=== PATIENT | male | born 1930 | race Caucasian/White ===

== ENCOUNTER 2017-04-15 11:21 | Inpatient (IN) ==
--- OUTSIDE RECORDS SUMMARY | 2017-04-15 11:27 | External Medical Summary | Summary of Care ---
:1930 Author Name Faina Linn M.D. Address [address] [place] [address] Care Team Providers Name Role Phone Bryan Oliver D.O. 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 Refills: 0 Started 16-Aug-2012 ActiveLisinopril 10 MG Oral Tablet TAKE 1 TABLET DAILY. Refills: 0 Started 16-Aug-2012 ActiveAleve 220 MG Oral Tablet TAKE 1 TABLET 3 TIMES DAILY NEEDED. Refills: 0 Started 16-Aug-2012 ActiveGlucosamine Sulfate 1000 MG Oral Capsule TAKE DIRECTED. Refills: 0 Started 16-Aug-2012 ActiveLovastatin 40 MG Oral Tablet TAKE 1 TABLET DAILY DIRECTED. Refills: 0 Started 16-Aug-2012 ActiveCarvedilol 6.25 MG Oral Tablet TAKE 1 TABLET TWICE DAILY WITH MEALS. Quantity: 60 Refills: 11 Bryan Oliver D.O. Started 16-Aug-2012 ActiveAspirin 81 MG Oral Tablet TAKE 1 TABLET DAILY. Quantity: 30 Refills: 0 Bryan Oliver D.O. Started 16-Aug-2012 ActiveAlendronate Sodium 70 MG Oral Tablet TAKE DIRECTED. Refills: 0 Started Active Allergies and Adverse Reactions Name Dates Details No Known Drug Allergies Status: Active Past Medical History Name Dates Details History of myocardial infarction (412, I25.2) Status: Resolved Procedures Procedure Dates Details History of CABG Procedures not documented Immunization Name Dates Details Immunizations not documented Family History Father Name Dates Details Family history of Acute Myocardial Infarction (V17.3) Status: Active Brother Name Dates Details Family history of Acute Myocardial Infarction (V17.3) Status: Active Family history of Acute Myocardial Infarction (V17.3) Status: Active Social History Name Dates Details Smoking StatusNever smoker Vital Signs Date Test Result Details 09:26 BP Systolic 112 mm[Hg] Status: BP Diastolic 70 mm[Hg] Status: Heart Rate 62 /min Status: Weight 176.4 lb Status: Body Mass Index Calculated 28.47 kg/m2 Status: Body Surface Area Calculated 1.9 m2 Status: Results Date Description Value Details Results not documented Plan of Care Planned Observations Name Dates Details Planned Goals not documented Goal Planned Encounters Appointment; Provider: Faina Linn On 09:00 Instructions Instructions not documented Encounters Appointment; Faina Linn On Encounter Diagnosis: Problem not documented 09:30 Appointment; Faina Linn On Encounter Diagnosis: Problem not documented 10:15
--- OUTSIDE RECORDS SUMMARY | 2017-04-15 11:27 | External Medical Summary | Summary of Care ---
:1930 Author Name Faina Linn M.D. Address [address] [place] [address] Care Team Providers Name Role Phone Bryna Oliver D.O. Unavailable Unavailable Veronica Schafer Primary [...] Procedures Procedure Dates Details History of CABG History of Appendectomy Procedures not documented Immunization Name Dates Details Immunizations not documented Family History Father Name Dates Details Family history of Acute Myocardial Infarction (V17.3) Status: Active Brother Name Dates Details Family history of Acute Myocardial Infarction (V17.3) Status: Active Family history of Acute Myocardial Infarction (V17.3) Status: Active Social History Name Dates Details Smoking StatusNever smoker Vital Signs Date Test Result Details 25-Dec-2014 11:37 BP Systolic 120 mm[Hg] Status: BP Diastolic 70 mm[Hg] Status: Heart Rate 72 /min Status: Height 66 in Status: Weight 171 lb Status: Body Mass Index Calculated 27.6 kg/m2 Status: Body Surface Area Calculated 1.87 m2 Status: Results Date Description Value Details 11-Dec-2014 13:07 CARD REST-STRESS PERFUSION Comments: Exam Date: 2014 08:40Dictation Date: 12/11/2014 13:07 XN CARD REST PERFUSION (Better) Plan of Care Planned Observations Name Dates Details Planned Goals not documented Goal Planned Encounters Appointment; Provider: Faina Linn On 09:00 Appointment; Provider: Schedule Radiology On 07-Dec-2014 09:00 Instructions Instructions not documented Encounters Appointment; Faina Linn On 25-Dec-2014 Encounter Diagnosis: Problem not documented 11:30 Appointment; Faina Linn On Encounter Diagnosis: Problem not documented 09:30 Appointment; Faina Linn On Encounter Diagnosis: Problem not documented 10:15
--- OUTSIDE RECORDS SUMMARY | 2017-04-15 11:27 | External Medical Summary ---
:1930 Author Name GENERATED, SYSTEM Care Team Providers Name Role Phone MD DOSHI KATHRYN Primary Care Provider [phone] Reason For Visit Reason for Visit from 01/09/2015 7:50 AM:Pt Stated Reason for Adm : "right knee replacement" Chief Complaint OA (R) KNEE,RIGHT TOTAL KNEE ART Social History Social History from 01/12/2015 9:38 AM:Tobacco Use? : Never SmokerSocial History from 01/09/2015 7:50 AM:Tobacco Use? : Never Smoker Functional Status Functional Status from 01/12/2015 4:28 AM:# Assists : 3Functional Status from 02/2015 8:30 PM:LOC : ConfusedOriented To : PersonWeight Bearing Status : FullAssist Level : Partial# Assists : 1Functional Status from 01/11/2015 8:45 AM: LOC : AlertOriented To : Person,Place,TimeWeight Bearing Status : FullAssist Level : Partial# Assists : 1Functional Status from 01/10/2015 8:11 PM:LOC : AlertOriented To : Person,PlaceWeight Bearing Status : FullAssist Level : Partial# Assists : 2Functional Status from 01/10/2015 6:29 PM:# Assists : 1Functional Status from 01/10/2015 9:48 AM:# Assists : 1Functional Status from 01/10 8:38 AM:Oriented To : Person,EventFunctional Status from 01/10/2015 8:13 AM: Oriented To : PersonFunctional Status from 01/10/2015 7:50 AM:LOC : ConfusedOriented To : PersonWeight Bearing Status : FullAssist Level : Partial# Assists : 2Functional Status from 01/09/2015 7:20 PM:LOC : AlertOriented To : Person,Place,Time,EventWeight Bearing Status : FullAssist Level : Partial# Assists : 1Functional Status from 01/09/2015 2:30 PM:LOC : AlertOriented To : Person,Place,TimeWeight Bearing Status : FullAssist Level : Partial# Assists : 2Functional Status from 01/09/2015 12:51 PM:LOC : AlertFunctional Status from 2014 11:45 AM:LOC : AlertFunctional Status from 01/09/2015 7:50 AM:LOC : AlertOriented To : Person,Place,Time,EventWeight Bearing Status : FullAssist Level : Independent# Assists : Independent Vital Signs Hospital Vital Signs from 01/12/2015 6:25 AM:Height : 5/5 ft,inTemperature : 98.3 FPulse : 91Respirations : 20BP : 146/66Hospital Vital Signs from 01/11/2015 10:44 PM:Height : 5/5 ft,inTemperature : 98.2 FPulse : 77Respirations : 20BP : 113/52Hospital Vital Signs from 01/11/2015 3:10 PM:Height : 5/5 ft,inTemperature : 973.9 FPulse : 74Respirations : 20BP : 135/57Hospital Vital Signs from 2014 6:08 AM:Height : 5/5 ft,inTemperature : 98.3 FPulse : 77Respirations : 14BP : 148/66Hospital Vital Signs from 01/11/2015 4:29 AM:Weight : 62.5/ kgHeight : 5/5 ft,inHospital Vital Signs from 01/10/2015 10:38 PM:Height : 5/5 ft, inTemperature : 99.4 FPulse : 80Respirations : 16BP : 141/63Hospital Vital Signs from 01/10/2015 3:07 PM:Height : 5/5 ft,inTemperature : 100.0 FPulse : 70Respirations : 16BP : 153/69Hospital Vital Signs from 01/10/2015 11:30 AM: Height : 5/5 ft,inTemperature : 99.1 FPulse : 73Respirations : 14BP : 133/ 62Hospital Vital Signs from 01/10/2015 9:06 AM:Height : 5/5 ft,inHospital Vital Signs from 01/10/2015 7:24 AM:Height : 5/5 ft,inTemperature : 99.1 FPulse : 73Respirations : 14BP : 136/82Hospital Vital Signs from 01/10/2015 2:17 AM:Height : 5/5 ft,inTemperature : 98.6 FPulse : 77Respirations : 20BP : 127/57Hospital Vital Signs from 01/09/2015 10:25 PM:Height : 5/5 ft,inTemperature : 99.3 FPulse : 65Respirations : 16BP : 135/60Hospital Vital Signs from 01/09/2015 7:29 PM: Height : 5/5 ft,inTemperature : 98.7 FPulse : 67Respirations : 16BP : 138/ 67Hospital Vital Signs from 01/09/2015 4:09 PM:Height : 5/5 ft,inPulse : 60Respirations : 16BP : 137/87Hospital Vital Signs from 01/09/2015 3:00 PM:Height : 5/5 ft,inPulse : 59Respirations : 16BP : 157/71Hospital Vital Signs from 2014 2:31 PM:Height : 5/5 ft,inPulse : 53Respirations : 16BP : 139/61Hospital Vital Signs from 01/09/2015 2:00 PM:Height : 5/5 ft,inPulse : 53Respirations : 16BP : 134/57Hospital Vital Signs from 01/09/2015 1:45 PM:Height : 5/5 ft,inPulse : 55Respirations : 16BP : 146/67Hospital Vital Signs from 01/09/2015 1:30 PM: Height : 5/5 ft,inPulse : 54Respirations : 16BP : 148/65Hospital Vital Signs from 01/09/2015 1:21 PM:Height : 5/5 ft,inTemperature : 97.2 FPulse : 53Respirations : 16BP : 135/63Hospital Vital Signs from 01/09/2015 12:50 PM:Heart Rate : 51Resp Rate : 15Systolic BP (mmHg) : 126Diastolic BP (mmHg) : 56Mean BP ( mmHg) : 73O2 Saturation (%) : 97Hospital Vital Signs from 01/09/2015 12:45 PM: Temp : 97.6Heart Rate : 50Resp Rate : 15Systolic BP (mmHg) : 111Diastolic BP ( mmHg) : 58Mean BP (mmHg) : 78O2 Saturation (%) : 96Hospital Vital Signs from 01/09 12:40 PM:Heart Rate : 50Resp Rate : 17Systolic BP (mmHg) : 112Diastolic BP (mmHg) : 64Mean BP (mmHg) : 76O2 Saturation (%) : 95Hospital Vital Signs from 01/09/2015 12:35 PM:Heart Rate : 47Resp Rate : 17Systolic BP (mmHg) : 115Diastolic BP (mmHg) : 63Mean BP (mmHg) : 78O2 Saturation (%) : 95Hospital Vital Signs from 01/09/2015 12:30 PM:Heart Rate : 49Resp Rate : 18O2 Saturation (% ) : 96Hospital Vital Signs from 01/09/2015 12:25 PM:Temp : 97.6Heart Rate : 51Resp Rate : 14Systolic BP (mmHg) : 120Diastolic BP (mmHg) : 97Mean BP (mmHg) : 104O2 Saturation (%) : 100Hospital Vital Signs from 01/09/2015 12:20 PM:Heart Rate : 49Resp Rate : 12Systolic BP (mmHg) : 127Diastolic BP (mmHg) : 77Mean BP ( mmHg) : 89O2 Saturation (%) : 100Hospital Vital Signs from 01/09/2015 12:15 PM: Heart Rate : 49Resp Rate : 12Systolic BP (mmHg) : 73Diastolic BP (mmHg) : 49Mean BP (mmHg) : 62O2 Saturation (%) : 100Hospital Vital Signs from 01/09/2015 12:10 PM:Heart Rate : 48Resp Rate : 15Systolic BP (mmHg) : 87Diastolic BP (mmHg ) : 53Mean BP (mmHg) : 74O2 Saturation (%) : 100Hospital Vital Signs from 2014 12:05 PM:Temp : 97.2Heart Rate : 48Resp Rate : 14Systolic BP (mmHg) : 110Diastolic BP (mmHg) : 59Mean BP (mmHg) : 72O2 Saturation (%) : 99Hospital Vital Signs from 01/09/2015 12:00 PM:Heart Rate : 50Resp Rate : 18Systolic BP ( mmHg) : 111Diastolic BP (mmHg) : 59Mean BP (mmHg) : 85O2 Saturation (%) : 97Hospital Vital Signs from 01/09/2015 11:55 AM:Heart Rate : 50Resp Rate : 18Systolic BP (mmHg) : 107Diastolic BP (mmHg) : 51Mean BP (mmHg) : 77O2 Saturation (%) : 99Hospital Vital Signs from 01/09/2015 11:50 AM:Heart Rate : 51Resp Rate : 19O2 Saturation (%) : 98Hospital Vital Signs from 01/09/2015 11:45 AM:Temp : 98Systolic BP (mmHg) : 102Diastolic BP (mmHg) : 49Mean BP (mmHg) : 65O2 Saturation (%) : 94Hospital Vital Signs from 01/09/2015 7:50 AM:Weight : 80.286/ kgHeight : 5/5 ft,inHospital Vital Signs from 01/09/2015 7:44 AM:Weight : 75/ kgHeight : 5/4.5 ft,inTemperature : 97 FPulse : 63Respirations : 18BP : 133/ 66 Results Chemistry from 01/12/2015 4:30 [id number] MMOL/L L (136-145 MMOL/L) POTASSIUM3.7 MMOL/L (3.5-5.1 MMOL/L) OWIFGBYK23 MMOL/L (98-107 MMOL/L) YOR306.6 MMOL/L (21.0-32.0 MMOL/L) ANION GAP12.4 MMOL/L (8.0-16.0 MMOL/L) BUN21 MG/DL H (7-18 MG/DL) CREATININE1.16 MG/DL (0.70-1.30 MG/DL) BUN/CREATININE RATIO18.1 H (9.1-17.0 ) AZHTWTH063 MG/DL H (65-99 MG/DL) GFR EST NON AFR TZPRXWWJ21 ML/MIN GFRA EST AFR AMER67 ML/MIN CALCIUM8.4 MG/DL L (8.5-10.1 MG/DL)Chemistry from 01/11/2015 5:24 [id number] MMOL/L L (136-145 MMOL/L) POTASSIUM4.3 MMOL/L (3.5-5.1 MMOL/L) RUUKJAJM704 MMOL/L (98-107 MMOL/L) ENI672.4 MMOL/L (21.0-32.0 MMOL/L) ANION GAP6.6 MMOL/L L (8.0-16.0 MMOL/L) BUN14 MG/DL (7-18 MG/DL) CREATININE0.96 MG/DL (0.70-1.30 MG/DL) BUN/CREATININE RATIO14.6 (9.1-17.0 ) JYXFMLQ966 MG/DL H (65-99 MG/DL) GFR EST NON AFR VUCOVPGT88 ML/MIN GFRA EST AFR AMER84 ML/MIN CALCIUM7.9 MG/DL L (8.5-10.1 MG/DL)Chemistry from 01/10/2015 4:47 [id number] MMOL /L (136-145 MMOL/L) POTASSIUM4.1 MMOL/L (3.5-5.1 MMOL/L) GGGHIFVX626 MMOL/L (98-107 MMOL/L) TIF105.1 MMOL/L (21.0-32.0 MMOL/L) ANION GAP6.9 MMOL/L L (8.0-16.0 MMOL/L) BUN16 MG/DL (7-18 MG/DL) CREATININE1.04 MG/DL (0.70-1.30 MG/DL) BUN/CREATININE RATIO15.4 (9.1-17.0 ) GICXWFQ193 MG/DL H (65-99 MG/DL) GFR EST NON AFR ESTWBOCQ60 ML/MIN GFRA EST AFR AMER77 ML/MIN CALCIUM7.9 MG/DL L (8.5-10.1 MG/DL)Chemistry from 01/09/2015 8:30 [id number] MMOL /L (136-145 MMOL/L) POTASSIUM4.0 MMOL/L (3.5-5.1 MMOL/L) ZXJITNQX613 MMOL/L (98-107 MMOL/L) SDY589.3 MMOL/L (21.0-32.0 MMOL/L) ANION GAP7.7 MMOL/L L (8.0-16.0 MMOL/L) BUN22 MG/DL H (7-18 MG/DL) CREATININE1.05 MG/DL (0.70-1.30 MG/DL) BUN/CREATININE RATIO21.0 H (9.1-17.0 ) NWUGOVP271 MG/DL H (65-99 MG/DL) GFR EST NON AFR UPSPYHKI76 ML/MIN GFRA EST AFR AMER76 ML/MIN CALCIUM8.6 MG/DL (8.5-10.1 MG/DL)Hematology from 01/12/2015 4:30 EKUDOKNBVOBG56.5 G/DL (12.5-16.3 G/DL) KJFTFIOJVH96.1 % (36.7-47.1 %)Hematology from 01/11/2015 5:24 TJPVGSUCFXVS07.4 G/ DL (12.5-16.3 G/DL) NDPOVGJNUL83.6 % (36.7-47.1 %)Hematology from 01/10/2015 4:47 NGTUESQXLXFW45.0 G/ DL (12.5-16.3 G/DL) LSNFXAXBWA57.9 % (36.7-47.1 %)Urinalysis from 01/10/2015 2:25 AMURINE COLORYELLOW (STRAW/YELL/DK YELL ) URINE APPEARANCETURBID (CLEAR ) URINE PH5.0 (5.0-8.0 ) URINE SPECIFIC GRAVITY>1.030 (<=1.005->=1.030 ) URINE GLUCOSENEGATIVE MG/DL (NEGATIVE MG/DL) URINE BILIRUBINNEGATIVE (NEGATIVE ) URINE KETONESNEGATIVE MG/DL (NEGATIVE MG/DL) URINE BLOODLARGE A (NEGATIVE ) URINE KIHEQWA80 MG/DL A (NEGATIVE MG/DL) URINE UROBILINOGEN0.2 EU/DL (0.2-1.0 EU/DL) URINE NITRITESNEGATIVE (NEGATIVE ) *URINE LEUKOCYTESNEGATIVE (NEGATIVE ) MICROSCOPIC EXAM PERFORMEDPERFORMED WBC0-1 /HPF (0-5 /HPF) JDI36-34 /HPF A (0-1 /HPF) BACTERIAFEW /HPF A (NEGATIVE /HPF) AMORPH. URATE LEONCIO.MANY /HPF (NEGATIVE /HPF)Blood Bank from 01/09/2015 8:30 AMANTIBODY SCREEN (Indirect [place])NEG ABO GROUPO RH TYPEPOS Problems Encounter Diagnosis Acute Pain Status:Active.Altered Mental Status Status:Active.Constipation Status :Active.Fall Risk Status:Active.Infection Risk Status:Active.Mobility Impairment Status:Active.Osteoarthritis Status:Active. Encounters Encounter Diagnosis Acute Pain Status:Active.Altered Mental Status Status:Active.Constipation Status :Active.Fall Risk Status:Active.Infection Risk Status:Active.Mobility Impairment Status:Active.Osteoarthritis Status:Active. Plan of Care Treatment Plan from 01/11/2015 10:35 AM:Care Management Note : food prep worker spoke to patient regarding his discharge plan to skilled care at [facility] tomorrow; patient denies any concerns with discharge. SW explained process for discharge tomorrow and will set up transportation with [facility]. Patient agreeable. Noother needs identified.Treatment Plan from 01/11/2015 9:49 AM:Care Management Note : patient continues with PT/OT. anticipate discharge tomorrow to [facility], skilled. Continues to monitor labs and vital signs. keep pain controlled.Treatment Plan from 2014 11:25 AM:Care Management Note : food prep worker spoke to patient, patient's spouse Leidy, and patient's daughter regarding discharge plan and discharge concerns. Leidy confirmed they reside in the independent living at [facility]; she is planning for him to go to the "rapid recovery" at [facility]. Leidy states she has already given PV a heads up regarding patient. Family is also requesting for PV to transport at discharge. SIDDHARTH discussed discharge date for Thursday01/12/15 if medically stable; family voiced understanding. SW made referral to [facility]; will follow.Treatment Plan from 2014 9:30 AM:Care Management Note : food prep worker attempted to discuss with patient discharge plan and discharge concerns; patient is currently on a 1:1 supervision due to confusion. Patient was able to confirm heresides with his spouse at [facility] in [place]; however, he could not tell me if he was in independent living or custodial care. SW attempted to ask further questions but he kept falling asleep. SIDDHARTH left contact information on board and requested clerk Simran providing one on one supervision to call me if family comes in to visit. SIDDHARTH attempted to contact patient's spouse Leidy via phone; left message on home number.Treatment Plan from 01/10/2015 8:12 AM:Care Management Note :Admission status: Inpatient.Patient to orthopedic unit following left total knee arthroplasty for osteoarthritis. Meets inpatient status per inpatient procedure list. labs and vital signs noted. PCP consulted for medical management. PT/OT consulted - to evaluate today. drain and sethi to be dc'd this morning. FWB. PO pain meds. IVF at 80 - SL when tolerating PO without difficulty. Monitor labs. IV Vancomycin as prevention. Xarelto started for DVT prevention. stay to exceed 2 midnights. anticipate discharge or Thursday. Ute MESSINA to work with DME and discharge plan. Procedures Completed Procedure Code: 00.00 Procedure Name: not valued, on 01/01/2015 12:00 AM Immunizations No immunizations administered or ordered. Hospital Course Hospital Discharge Instructions How to care for yourself at home from 01/12/2015 9:38 AM:Discharge Activity : Activity as tolerated,No Tub BathDischarge Diet: : Regular diet with 1 Glucerna shake daily for snack (chocolate)Discharge Wound Care : Keep dressings dry, Notify your physician if the following develops: redness, swelling, drainage or color of drainage changes, odor or increased pain.Remove dressing in: : Call orthopedics w/dsg concernsCall your doctor if: : Fever over 101 F or severe chills,Chest pain or other unexplained symptoms,Tingling or numbness develops,A sudden increase or decrease in weight,You have persistent or worsening symptoms, If you have Heart Failure and you gain 3 pounds within 1 week or your symptoms worsen. (Weigh at home tomorrow morning)Specific Discharge Teaching Instructions provided: : NoDischarge on Warfarin : No Allergies, Adverse Reactions, Alerts polymyxin B causes per H&P.neomycin causes per H&P.bacitracin causes per H&P.Plavix causes per H&P.No Latex Allergy.No IV Contrast Allergy. Medication It is the responsibility of the patient or patient professional healthcare representative to confirm the list of medicationswith either the patient's personal care provider or the patient's follow-up care provider to ensure the patient has an appropriate list of medications to take at home. Discharge medicationsNew medicationsrivaroxaban (Xarelto) 10 mg Tablet, Ordered By: THANH PINO Directions: 1 tablet oral daily for 12 days with dinner Additional Instructions: ATTENTION NURSE/PHARMACIST: START 6-10 HOURS POST OP. acetaminophen (Mapap (acetaminophen)) 325 mg Tablet, Ordered By: THANH PINO Directions: 2 tablet oral every four hours PRN PAIN SCALE 1-3 Additional Instructions: GIVE NEEDED FOR PAIN SCALE 1-3 Continued medicationscarvedilol 6.25 mg Tablet, Ordered By: THANH PINO Directions: 1 tablet oral twice a day during meal lisinopril 10 mg Tablet, Ordered By: THANH PINO Directions: 1 tablet oral daily lovastatin 40 mg Tablet, Ordered By: THANH PINO Directions: 1 tablet oral daily at bedtime alendronate 70 mg Tablet, Ordered By: THANH PINO Directions: 1 tablet oral weekly Stopped medicationsCalcium Carbonate with Vitamin D3 600 mg/800 units by mouth daily, aspirin 81 mg tablet,chewable Directions: 1 tablet oral daily glucosamine sulfate 1,000 mg Capsule Directions: 1 capsule oral daily every morning and at bedtime
--- OUTSIDE RECORDS SUMMARY | 2017-04-15 11:27 | External Medical Summary ---
:1930 Author Organization [facility]. Summary purpose CCDA Sent to [facility] Chief Complaint and Reason for Visit Admit Diagnosis 1 HYPERTENSION NOS Problem list No authorized problems tracked for continuity of care are available for this visit. Encounters No authorized problems tracked for encounter diagnoses are available for this visit. Medications No home medications recorded for this patient visit Allergies, adverse reactions, alerts No allergy information is available for this patient. Immunizations No immunizations recorded for this patient visit Relevant diagnostic tests and/or laboratory data RESULTS CBC :20:00 Result Normal Range Units WBC 10.53 5.8-10.8 x103/mm3 Neutrophil % 60.0 50-70 % Lymph % 25.8 20-50 % Assumption % H 10.2 1.0-9.0 % Eosinophil % 3.6 0-4 % Basophil % 0.4 0-2 % Neutrophil # 6.32 3.0-7.0 x103/mm3 Lymph # 2.72 1.0-4.0 x103/mm3 Assumption # H 1.07 0.0-0.8 x103/mm3 Eosinophil # 0.38 0-0.5 x103/mm3 Basophil # 0.04 0-0.2 x103/mm3 RBC 4.75 4.60-6.20 x103/mm3 HGB 15.2 14.0-18.0 g/dl HCT 43.4 42.0-52.0 % MCV 91.4 80-94 FL MCH H 32.0 27.0-31.0 pg MCHC 35.0 32.0-36.0 g/dl RDW 13.2 12-15 % Platelet 180 150-400 x103/mm3 MPV H 10.3 6.0-10.0 FL Chemistry Group :20:00 Result Normal Range Units Sodium 139 134-145 mmol/L Potassium 4.5 3.6-5.0 mmol/L Chloride 101 98-107 mmol/L CO2 26 22-30 mmol/L Glucose H 118 75-110 mg/dl BUN H 24 9-20 mg/dl Creatinine 1.1 0.8-1.7 mg/dl Calcium 9.2 8.4-10.2 mg/dl History of procedures Procedure Code Code Type Description Date Performed Performing Physician [id number] CPT-4 METABOLIC PANEL TOTAL 12-26-2014 RAMON REID [id number] CPT-4 COMPLETE CBC AUTOMATED 12-26-2014 RAMON DOSHI Functional status No functional or cognitive status observations are available for this visit. Vital signs No authorized vital signs are available for this visit. Social history No Social History or smoking status observations were recorded for this visit. ( Unknown if ever smoked.) Treatment Plan No treatment plan text is available for this visit. Hospital discharge instructions No discharge instruction text is available for this visit.
--- OUTSIDE RECORDS SUMMARY | 2017-04-15 11:27 | External Medical Summary ---
:1930 Author Organization [facility] Summary purpose CCDA Sent to [facility] Chief Complaint and Reason for Visit Admit Diagnosis 1 FALL, HIT HEAD Problem list Condition Status Certainty Chronicity Onset .Alteration of consciousness Discharged Encounters The following conditions tracked for encounter diagnoses were recorded for this visit: Finding or Diagnosis Status Certainty Chronicity Onset .Alteration of consciousness Discharged Medications No medications recorded for this patient visit Allergies, adverse reactions, alerts Allergen Category Ingredient Status Reaction Severity Onset bacitracin Drug bacitracin Active Plavix Drug Plavix Active Plavix Drug clopidogrel Active neomycin Drug neomycin Active Westcort Drug Westcort Active (ilomuzkg-yahfvh-TX) (myfjnskl-wqedtj-AM) Westcort Drug hydrocortisone Active (rahpsmrv-jcizrs-GY) [facility]cort Drug neomycin Active (xqxznneg-tebvdz-DK) [place]ort Drug polymyxin B Active (jjcttmne-lbpbfi-MG) Immunizations Status Date Not Given Product Series # 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 He was unable to void so catheter was placed. CBC [id number]:40:00 Result Normal Range Units WBC 7.98 5.8-10.8 x103/mm3 Neutrophil % 66.2 50-70 % Lymph % 21.6 20-50 % [place] % H 9.1 1.0-9.0 % Eosinophil % 3.0 0-4 % Basophil % 0.1 0-2 % Neutrophil # 5.28 3.0-7.0 x103/mm3 Lymph # 1.72 1.0-4.0 x103/mm3 [place] # 0.73 0.0-0.8 x103/mm3 Eosinophil # 0.24 0-0.5 x103/mm3 Basophil # 0.01 0-0.2 x103/mm3 RBC 4.72 4.60-6.20 x103/mm3 HGB 15.4 14.0-18.0 g/dl HCT 44.0 42.0-52.0 % MCV 93.2 80-94 FL MCH H 32.6 27.0-31.0 pg MCHC 35.0 32.0-36.0 g/dl RDW 13.5 12-15 % Platelet 150 150-400 x103/mm3 MPV 9.5 6.0-10.0 FL Urinalysis :28:00 Result Normal Range Units Site VOID Color Yellow Urine Appearance Clear Specific [place] 1.020 1.005-1.030 pH 6.0 5.0-9.0 Protein AB Trace Negative Glucose Negative Negative Ketones Negative Negative Bilirubin Negative Negative Blood Negative Negative Nitrite Negative Negative Urobilinogen H 1.0 0.20 mg/dl Leukocyte Negative Negative Chemistry Group :40:00 Result Normal Range Units Sodium 141 134-145 mmol/L Potassium 4.3 3.6-5.0 mmol/L Chloride 103 98-107 mmol/L CO2 25 22-30 mmol/L Glucose H 156 75-110 mg/dl BUN H 31 9-20 mg/dl Creatinine .97 0.8-1.7 mg/dl eGFR 74 ml/min. Total Protein 7.1 6.3-8.2 g/dl Albumin 4.0 3.5-5.0 g/dl Calcium 9.2 8.4-10.2 mg/dl Alk Phos 71 38-126 U/L AST 33 14-36 U/L ALT 33 11-66 U/L T Bili .7 0.2-1.3 mg/dl A/G Ratio 1.3 Ratio Lactic Acid 1.5 0-2.1 mmol/L Special Chemistry Group :40:00 Result Normal Range Units Troponin I < 0.06 ng/ml NEGATIVE - 0.06-0.30 ng/ml INCONCLUSIVE - 0.31-0.64 ng/ml; Suggest Repeating in 2-4 hours POSITIVE - >0.64 ng/ml; Probable AMI Urinalysis with Microscopic [id number]:28:00 Result Normal Range Units Site VOID Color Yellow Urine Appearance Clear Specific [place] 1.020 1.005-1.030 pH 6.0 5.0-9.0 Protein AB Trace Negative Glucose Negative Negative Ketones Negative Negative Bilirubin Negative Negative Blood Negative Negative Nitrite Negative Negative Urobilinogen H 1.0 0.20 mg/dl Leukocyte Negative Negative History of procedures Procedure Code Code Type Description Date Performed Performing Physician 06311 CPT-4 EMERGENCY DEPT VISIT 01-22-2017 RAMON SCHAFER 15839 CPT-4 COMPLETE CBC W/AUTO DIFF 01-22-2017 RAMON SCHAFER WBC 53109 CPT-4 COMPREHEN METABOLIC 01-22-2017 RAMON SCHAFER PANEL 15061 CPT-4 ASSAY OF TROPONIN, 01-22-2017 RAMON SCHAFER QUANT 47292 CPT-4 ASSAY OF LACTIC ACID 01-22-2017 RAMON SCHAFER 36629 CPT-4 URINALYSIS, AUTO, W/O 01-22-2017 RAMON SCHAFER SCOPE 58337 CPT-4 ELECTROCARDIOGRAM, 01-22-2017 RAMON SCHAFER TRACING 22419 CPT-4 TDAP VACCINE >7 IM 01-22-2017 RAMON SCHAFER G0378 CPT-4 HOSPITAL OBSERVATION PER 01-22-2017 [place] [address] CPT-4 IMMUNIZATION ADMIN 01-22-2017 RAMON SCHAFER 03658 CPT-4 REPAIR SUPERFICIAL 01-22-2017 RAMON SCHAFER WOUND(S) Functional status Functional Status Finding Observation Time Weight Bearing Statu Full 50-37-742257:14 Transferring/Ambulat Device & Assistance 46-37-030696:14 Bathing Dependent 15-51-525394:14 Dressing Dependent 71-00-431481:14 Eating Needs Assistance 68-56-198615:14 Drinking Independent 93-69-218216:14 Toileting Needs Assistance 33-36-603144:14 Able to Turn Self in Independent 81-27-653469:14 Cognitive Status Finding Observation Time Level of Consciousne Alert 30-29-135954:40 Oriented to Person Yes 76-03-967614:[address] Yes 07-02-309807:40 Oriented to Time Yes 49-44-451323:40 Dizziness Continuous 20-45-200249:30 Vital signs Type Value Date Respirations 20 :30 Pulse 87 :30 O2 Saturation 95% :30 Systolic Blood Press 156mm/HG :30 Diastolic Blood Pres 66mm/HG :30 Temperature (Fahr) 98.6Degrees :30 Height 66in :12 Weight 175.5LB :12 Social history Type Value Smoking Status NEVER SMOKER Treatment Plan Treatment Plan at Di Patient to have indwelling catheter for 3-4 weeks, per Dr. Schafer. He was started on Flomax also. Will return to [facility] in [place]. Hospital discharge instructions Diagnosis Altered LOC, Fall, Urinary Retention Diet Regular with limited concentrated sweets Activity Level Ambulate with wheeled walker and assist. May have shower. Med Dispensed by [facility] Flu Vaccine Given Received in Hospital Follow up with Dr. Schfaer Appointment Date and Feb.02 @ 9:30
--- OUTSIDE RECORDS SUMMARY | 2017-04-15 11:28 | External Medical Summary ---
:1930 Author Organization [facility]. Summary purpose CCDA Sent to [facility] Chief Complaint and Reason for Visit Admit Diagnosis 1 FALL, MALAISE Problem list No authorized problems tracked for continuity of care are available for this visit. Encounters No authorized problems tracked for encounter diagnoses are available for this visit. Medications No medications recorded for this patient visit Allergies, adverse reactions, alerts Allergen Category Ingredient Status Reaction Severity Onset No Known Allergies No Known Allergies No Known Allergies Active Immunizations No immunizations recorded for this patient visit Relevant diagnostic tests and/or laboratory data RESULTS CBC 94-81-557724:50:00 Result Normal Range Units WBC 7.31 5.8-10.8 x103/mm3 Neutrophil % 65.3 50-70 % Lymph % 21.2 20-50 % [place] % H 10.9 1.0-9.0 % Eosinophil % 2.3 0-4 % Basophil % 0.3 0-2 % Neutrophil # 4.77 3.0-7.0 x103/mm3 Lymph # 1.55 1.0-4.0 x103/mm3 [place] # 0.80 0.0-0.8 x103/mm3 Eosinophil # 0.17 0-0.5 x103/mm3 Basophil # 0.02 0-0.2 x103/mm3 RBC 4.71 4.60-6.20 x103/mm3 HGB 15.1 14.0-18.0 g/dl HCT 43.7 42.0-52.0 % MCV 92.8 80-94 FL MCH H 32.1 27.0-31.0 pg MCHC 34.6 32.0-36.0 g/dl RDW 14.5 12-15 % Platelet L 147 150-400 x103/mm3 MPV 9.4 6.0-10.0 FL Urinalysis 68-78-289273:15:00 Result Normal Range Units Site VOID Color Yellow Urine Appearance Clear Specific [place] 1.020 1.005-1.030 pH 6.5 5.0-9.0 Protein Negative Negative Glucose Negative Negative Ketones Negative Negative Bilirubin Negative Negative Blood Negative Negative Nitrite Negative Negative Urobilinogen H 1.0 0.20 mg/dl Leukocyte Negative Negative Chemistry Group 51-43-852307:50:00 Result Normal Range Units Sodium 139 134-145 mmol/L Potassium 4.6 3.6-5.0 mmol/L Chloride 101 98-107 mmol/L CO2 24 22-30 mmol/L Glucose H 136 75-110 mg/dl BUN H 30 9-20 mg/dl Creatinine .98 0.8-1.7 mg/dl eGFR 73 ml/min. Total Protein 7.2 6.3-8.2 g/dl Albumin 4.0 3.5-5.0 g/dl Calcium 9.0 8.4-10.2 mg/dl Alk Phos 69 38-126 U/L AST 35 14-36 U/L ALT 23 11-66 U/L T Bili .7 0.2-1.3 mg/dl A/G Ratio 1.2 Ratio Urinalysis with Microscopic 98-43-170061:15:00 Result Normal Range Units Site VOID Color Yellow Urine Appearance Clear Specific [place] 1.020 1.005-1.030 pH 6.5 5.0-9.0 Protein Negative Negative Glucose Negative Negative Ketones Negative Negative Bilirubin Negative Negative Blood Negative Negative Nitrite Negative Negative Urobilinogen H 1.0 0.20 mg/dl Leukocyte Negative Negative History of procedures Procedure Code Code Type Description Date Performed Performing Physician 36457 CPT-4 EMERGENCY DEPT VISIT 08-30-2016 DOE LUQUE 36333 CPT-4 COMPLETE CBC, 08-30-2016 DOE LQUUE AUTOMATED 67416 CPT-4 URINALYSIS, AUTO, W/O 08-30-2016 DOE LUQUE SCOPE 46439 CPT-4 COMPREHEN METABOLIC 08-30-2016 DOE LUQUE PANEL Functional status Cognitive Status Finding Observation Time Level of Consciousne Alert 99-14-469477:30 Dizziness With Activity 07-30-896431:30 Vital signs Type Value Date Respirations 16 18-49-715181:10 Pulse 64 00-41-554984:10 O2 Saturation 95% 68-07-464880:10 Systolic Blood Press 144mm/HG 48-85-362673:10 Diastolic Blood Pres 82mm/HG 60-69-082906:10 Temperature (Fahr) 98.7Degrees 48-64-697369:10 Social history Type Value Smoking Status NEVER SMOKER Treatment Plan No treatment plan text is available for this visit. Hospital discharge instructions No discharge instruction text is available for this visit.
--- OUTSIDE RECORDS SUMMARY | 2017-04-15 11:28 | External Medical Summary ---
:1930 Author Organization [facility]. Summary purpose CCDA Sent to [facility] Chief Complaint and Reason for Visit No authorized Reason for Visit (Admitting Diagnosis) is available for this visit. Problem list No authorized problems tracked for [...] CBC :20:00 Result Normal Range Units WBC 10.13 5.8-10.8 x103/mm3 Neutrophil % 69.9 50-70 % Lymph % L 19.0 20-50 % B[place] % H 9.6 1.0-9.0 % Eosinophil % 1.4 0-4 % Basophil % 0.1 0-2 % Neutrophil # H 7.09 3.0-7.0 x103/mm3 Lymph # 1.92 1.0-4.0 x103/mm3 [place] # H 0.97 0.0-0.8 x103/mm3 Eosinophil # 0.14 0-0.5 x103/mm3 Basophil # 0.01 0-0.2 x103/mm3 RBC 4.65 4.60-6.20 x103/mm3 HGB 14.9 14.0-18.0 g/dl HCT 43.0 42.0-52.0 % MCV 92.5 80-94 FL MCH H 32.0 27.0-31.0 pg MCHC 34.7 32.0-36.0 g/dl RDW 13.8 12-15 % Platelet 152 150-400 x103/mm3 MPV 9.5 6.0-10.0 FL Chemistry Group :20:00 Result Normal Range Units Sodium 139 134-145 mmol/L Potassium 4.5 3.6-5.0 mmol/L Chloride 100 98-107 mmol/L CO2 H 31 22-30 mmol/L Glucose H 127 75-110 mg/dl BUN H 25 9-20 mg/dl Creatinine .99 0.8-1.7 mg/dl eGFR 72 ml/min. Calcium 9.1 8.4-10.2 mg/dl History of procedures Procedure Code Code Type Description Date Performed Performing Physician 30119 CPT-4 METABOLIC PANEL TOTAL 03-05-2016 [place] [address] CPT-4 COMPLETE CBC, 03-05-2016 TAL PFEIFFER AUTOMATED 33898 CPT-4 ROUTINE VENIPUNCTURE 03-05-2016 TALLizandro PFEIFFER Functional status No functional or cognitive status [...]
--- OUTSIDE RECORDS SUMMARY | 2017-04-15 11:28 | External Medical Summary ---
:1930 [address] [facility] Address [address] [place] [address] Care Team Providers Name Role Phone Rodrigo Duncan Unavailable Unavailable PROBLEMS Unknown Problems ALLERGIES Unknown Allergies SOCIAL HISTORY No smoking Hx information available PLAN OF CARE VITAL SIGNS MEDICATIONS Unknown Medications RESULTS No Results PROCEDURES No Known procedures IMMUNIZATIONS No Known Immunizations
--- OUTSIDE RECORDS SUMMARY | 2017-04-15 11:28 | External Medical Summary ---
:1930 Author Organization [facility]. 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 Functional status No functional or cognitive status [...]
--- OUTSIDE RECORDS SUMMARY | 2017-04-15 11:28 | External Medical Summary ---
:1930 Author Organization [facility] Summary purpose CCDA Sent to [facility] Chief Complaint and Reason for Visit Admit Diagnosis 1 FALL, COMBATIVE, AGITATED Problem list No authorized problems tracked for [...] Drug neomycin Active Westcort Drug Westcort Active (wsamprph-zauciz-BK) (zfdzujro-bilhwt-AQ) Westcort Drug hydrocortisone Active (owwadrfz-rmxetu-FP) [place]ort Drug neomycin Active (edhzyipm-rvansw-NN) [place] Drug polymyxin B Active (bemtjldd-ukodqo-CM) Immunizations Status Date Not Given Product Series # Effectiveness / Weigher 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 Lot / Reason Reaction Expiration Given DIPH,PERTU 1 GLAXOSMITHKLINE [id number] / 017 SS(ACELL), 11-02-2017 TET VAC/PF Relevant diagnostic tests and/or laboratory data RESULTS Urinalysis 87-40-760638:55:00 Result Normal Range Units Site CATH Color Ana Urine Appearance Clear Specific [place] 1.030 1.005-1.030 pH 5.0 5.0-9.0 Protein AB 3+ Negative Glucose AB Trace Negative Ketones AB 2+ Negative Bilirubin AB 2+ Negative Blood AB 3+ Negative Nitrite Negative Negative Urobilinogen H 2.0 0.20 mg/dl Leukocyte Negative Negative Urinalysis with Microscopic 30-74-848857:55:00 Result Normal Range Units Site CATH Color Ana Urine Appearance Clear Specific [place] 1.030 1.005-1.030 pH 5.0 5.0-9.0 Protein AB 3+ Negative Glucose AB Trace Negative Ketones AB 2+ Negative Bilirubin AB 2+ Negative Blood AB 3+ Negative Nitrite Negative Negative Urobilinogen H 2.0 0.20 mg/dl Leukocyte Negative Negative History of procedures Procedure Code Code Type Description Date Performed Performing Physician 77996 CPT-4 EMERGENCY DEPT VISIT 01-24-2017 RAPHAEL FRIED 86912 CPT-4 URINALYSIS, AUTO, W/O 01-24-2017 RAPHAEL FRIED SCOPE Functional status Cognitive Status Finding Observation Time Level of Consciousne Agitated 38-37-461763:51 Comment: borderline combative Oriented to Person Yes 32-03-658151:[address] No 20-80-750106:51 Oriented to Time No 83-32-534228:51 Vital signs Type Value Date Respirations 18 46-66-371942:27 Pulse 90 87-19-902050:27 O2 Saturation 92% 50-15-305990:36 Systolic Blood Press 140mm/HG 71-46-479650:27 Diastolic Blood Pres 80mm/HG 83-78-832330:27 Temperature (Fahr) 98.8Degrees 34-56-799219:36 Social history Type Value Smoking Status NEVER SMOKER Treatment Plan Treatment Plan at pt dc'd back to [facility] with 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 Hospital discharge instructions No discharge instruction text is available for this visit.
--- OUTSIDE RECORDS SUMMARY | 2017-04-15 11:28 | External Medical Summary ---
:1930 Author Organization [facility]. Summary purpose CCDA Sent to [facility] Chief Complaint and Reason for Visit No [...] diagnostic tests and/or laboratory data RESULTS CBC :55:00 Result Normal Range Units WBC 9.64 5.8-10.8 x103/mm3 Neutrophil % 64.5 50-70 % Lymph % 23.4 20-50 % [place] % H 9.1 1.0-9.0 % Eosinophil % 2.7 0-4 % Basophil % 0.3 0-2 % Neutrophil # 6.21 3.0-7.0 x103/mm3 Lymph # 2.26 1.0-4.0 x103/mm3 Winn # H 0.88 0.0-0.8 x103/mm3 Eosinophil # 0.26 0-0.5 x103/mm3 Basophil # 0.03 0-0.2 x103/mm3 RBC 4.73 4.60-6.20 x103/mm3 HGB 15.1 14.0-18.0 g/dl HCT 44.3 42.0-52.0 % MCV 93.7 80-94 FL MCH H 31.9 27.0-31.0 pg MCHC 34.1 32.0-36.0 g/dl RDW 13.8 12-15 % Platelet 200 150-400 x103/mm3 MPV H 10.2 6.0-10.0 FL Chemistry Group :55:00 Result Normal Range Units Sodium 141 134-145 mmol/L Potassium 4.4 3.6-5.0 mmol/L Chloride 101 98-107 mmol/L CO2 27 22-30 mmol/L Glucose H 124 75-110 mg/dl BUN H 25 9-20 mg/dl Creatinine 1.13 0.8-1.7 mg/dl eGFR 62 ml/min. Calcium 9.2 8.4-10.2 mg/dl History of procedures No procedures recorded for [...]
--- OUTSIDE RECORDS SUMMARY | 2017-04-15 11:28 | External Medical Summary | Summary of Care ---
:1930 Author Name Familia Lua M.D. Address Unavailable Unavailable , Care Team Providers Name Role Phone Bryan Oliver D.O. Unavailable Unavailable Faina Linn M.D. Unavailable Unavailable Familia Lua M.D. 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 Refills: 0 Start 16-Aug-2012 Active Glucosamine Sulfate 1000 MG Oral Capsule TAKE DIRECTED. Refills: 0 Start 16-Aug-2012 Active Lovastatin 40 MG Oral Tablet TAKE 1 TABLET DAILY DIRECTED. Refills: 0 Start 16-Aug-2012 Active Carvedilol 3.125 MG Oral Tablet Take 1 tablet twice daily Quantity: 60 Refills: 5 Faina Linn M.D. Start 16-Aug-2012 Active Aspirin 81 MG TABS TAKE 1 TABLET DAILY. Quantity: 30 Refills: 0 Bryan Oliver D.O. Start 16-Aug-2012 Active Alendronate Sodium 70 MG Oral Tablet TAKE DIRECTED. Refills: 0 Start Active Calcium 600/Vitamin D3 600-800 MG-UNIT Oral Tablet 1 daily Refills: 0 Start 10-Jan-2016 Active Flecainide Acetate 50 MG Oral Tablet TAKE 1 TABLET BY MOUTH TWICE DAILY Quantity: 180 Refills: 1 Faina Linn M.D. Start 10-Jan-2016 Active Allergies and Adverse Reactions Name Dates Details No Known Drug Allergies (Allergy) Status: Active Past Medical History Name Dates Details History of myocardial infarction (412, I25.2) Status: Resolved Procedures Procedure Dates Details History of CABG History of Appendectomy History of Arterial Catheterization Procedures not documented Immunization Name Dates Details Immunizations not documented Family History Father Name Dates Details Family history of Acute Myocardial Infarction (V17.3) Status: Active Brother Name Dates Details Family history of Acute Myocardial Infarction (V17.3) Status: Active Family history of Acute Myocardial Infarction (V17.3) Status: Active Social History Name Dates Details - Status: Smoking Status Name Dates Details Never smoker Vital Signs Date Test Result Details 19-Feb-2016 10:39 BP Systolic 112 mm[Hg] Status: Comments: Location: ; Position: BP Diastolic 70 mm[Hg] Status: Comments: Location: ; Position: Heart Rate 61 /min Status: Comments: Location: ; Physical Findings 94 Status: Comments: O2 Saturation 18-Feb-2016 11:19 BP Systolic 116 mm[Hg] Status: Comments: Location: ; Position: BP Diastolic 74 mm[Hg] Status: Comments: Location: ; Position: Heart Rate 54 /min Status: Comments: Location: ; Height 66 in Status: Results Date Description Value Details Results not documented Plan of Care Name Dates Details Planned Observations Planned Goals not documented Planned Encounters Appointment; Provider: Faina Linn M.D. On 18-Aug-2016 11:00 Instructions Name Dates Details Instructions not documented Encounters Appointment; Faina Linn M.D. On 18-Feb-2016 Encounter Diagnosis: Problem not documented 10:45 Appointment; Faina Linn M.D. On 10-Jan-2016 Encounter Diagnosis: Problem not documented 10:30 Appointment; Faina Linn M.D. On Encounter Diagnosis: Problem not documented 13:45 Appointment; Faina Linn M.D. On 18-Sep-2015 Encounter Diagnosis: Problem not documented 14:15 Appointment; Faina Linn M.D. On 03-Apr-2015 Encounter Diagnosis: Problem not documented 14:30 Appointment; Faina Linn M.D. On 25-Dec-2014 Encounter Diagnosis: Problem not documented 11:30 Appointment; Faina Linn M.D. On Encounter Diagnosis: Problem not documented 09:30
--- OUTSIDE RECORDS SUMMARY | 2017-04-15 11:28 | External Medical Summary ---
:1930 Author Organization [facility]. Summary purpose CCDA Sent to [facility] Chief Complaint and Reason for Visit Admit Diagnosis 1 chest pain Problem list No authorized problems tracked for [...] Drug neomycin Active [facility]cort Drug [facility]cort Active (mfrnsfou-chsvtt-UM) (ycfwsned-mlcona-EE) [facility] Drug hydrocortisone Active (xrwogfhm-makqms-OI) [facility] Drug neomycin Active (uftsjyws-nuajkp-UB) [place] Drug polymyxin B Active (fjlwmzdu-pmgras-WN) Immunizations Status Date Not Given Product Series # Effectiveness / Physician Office Clin Asst Lot / Reason Reaction Expiration Given DIPH,PERTU [...]
--- OUTSIDE RECORDS SUMMARY | 2017-04-15 11:29 | External Medical Summary | Summary of Care ---
:1930 Author Name Faina Linn M.D. Address [address] [place] [address] Care Team Providers Name Role Phone Bryan [...] Status: Active Hypertension (401.9, I10) Status: Active Medications Name Dates Details Calcium [...] Oral Tablet TAKE DIRECTED. Refills: 0 Started ActiveSertraline HCl - 50 MG Oral Tablet TAKE 1 TABLET DAILY DIRECTED. Refills: 0 Started 03-Apr-2015 Active Allergies and Adverse Reactions Name Dates [...] smoker Vital Signs Date Test Result Details 03-Apr-2015 14:27 BP Systolic 110 mm[Hg] Status: BP Diastolic 60 mm[Hg] Status: Heart Rate 58 /min Status: Weight 165.2 lb Status: Body Mass Index Calculated 26.66 kg/m2 Status: Body Surface Area Calculated 1.84 m2 Status: Results Date Description Value Details Results not documented Plan of Care Planned Observations Name Dates Details Planned Goals not documented Goal Planned Encounters Appointment; Provider: Faina Linn On 13:00 Appointment; Provider: Faina Linn On 01-Jan-2015 14:30 Appointment; Provider: Schedule Radiology On 07-Dec-2014 09:00 Instructions Instructions not documented Encounters Appointment; Faina Linn On 03-Apr-2015 Encounter Diagnosis: Problem not documented 14:30 Appointment; Faina Linn On 25-Dec-2014 Encounter Diagnosis: Problem not documented 11:30 Appointment; Faina Linn On Encounter Diagnosis: Problem not documented 09:30 Appointment; Faina Linn On Encounter Diagnosis: Problem not documented 10:15
--- OUTSIDE RECORDS SUMMARY | 2017-04-15 11:29 | External Medical Summary | Summary of Care ---
:1930 Author Name Faina Linn M.D. Address Unavailable Unavailable , Care Team Providers Name Role Phone Bryan Oliver D.O. Unavailable Unavailable Faina Linn M.D. 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 Refills: 0 Start -Aug-2012 Active Glucosamine Sulfate 1000 MG Oral Capsule [...] Oral Tablet TAKE DIRECTED. Refills: 0 Start -November-2013 Active Calcium 600/Vitamin D3 600-800 MG-UNIT Oral Tablet 1 daily Refills: 0 Start -Jan-2016 Active Allergies and Adverse Reactions Name Dates [...] smoker Vital Signs Date Test Result Details 10-Jan-2016 10:21 BP Systolic 112 mm[Hg] Status: Comments: Location: ; Position: BP Diastolic 72 mm[Hg] Status: Comments: Location: ; Position: Heart Rate 72 /min Status: Comments: Location: ; Height 66 in Status: Weight 174 lb Status: Body Mass Index Calculated 28.08 kg/m2 Status: Body Surface Area Calculated 1.89 m2 Status: Results Date Description Value Details Results not documented Plan of Care Name Dates Details Planned Observations Planned Goals not documented Planned Encounters Appointment; Provider: Faina Linn M.D. On 21-Feb-2016 10:00 Instructions Name Dates Details Instructions not documented Encounters Appointment; Faina Linn M.D. On Encounter Diagnosis: [...]
--- OUTSIDE RECORDS SUMMARY | 2017-04-15 11:29 | External Medical Summary | Summary of Care ---
:1930 Author Name Faina Linn M.D. Address [address] [place] [address] Care Team Providers Name Role Phone Bryan Oliver D.O. Unavailable Unavailable Veronica Schafer Primary Care Provider Unavailable Unavailable Unavailable Unavailable Functional Status Functional Status Health Issues Name Dates Details Functional status health issues are not documented Status: Cognitive Status Health Issues Name Dates Details Cognitive status health issues are not documented Status: Problems Name Dates Details Left heart failure (428.1, I50.1) Status: Active Hypertension (401.9, I10) Status: Active Coronary artery disease (414.00, I25.10) Status: Active Hyperlipidemia (272.4, E78.5) Status: Active Medications Name Dates Details Calcium [...] Details No Known Drug Allergies Status: Active Procedures Procedure Dates Details History of CABG [...] smoker Vital Signs Date Test Result Details No Known Vitals to report Results Date Description Value Details Results not documented Plan of Care Planned Observations Name Dates Details Planned Goals not documented Goal Planned Encounters Appointment; Provider: Faina Linn On 09:30 Instructions Instructions not documented Encounters Appointment; Faina Linn On Encounter Diagnosis: Problem not documented 10:15
--- OUTSIDE RECORDS SUMMARY | 2017-04-15 11:29 | External Medical Summary ---
:[address] [facility]. Summary purpose CCDA Sent to [facility] Chief Complaint and Reason for Visit No [...] diagnostic tests and/or laboratory data RESULTS CBC [id number]:30:00 Result Normal Range Units WBC 9.92 5.8-10.8 x103/mm3 Neutrophil % 65.6 50-70 % Lymph % 23.3 20-50 % Dolores % H 9.1 1.0-9.0 % Eosinophil % 1.9 0-4 % Basophil % 0.1 0-2 % Neutrophil # 6.51 3.0-7.0 x103/mm3 Lymph # 2.31 1.0-4.0 x103/mm3 Dolores # H 0.90 0.0-0.8 x103/mm3 Eosinophil # 0.19 0-0.5 x103/mm3 Basophil # 0.01 0-0.2 x103/mm3 RBC L 4.43 4.60-6.20 x103/mm3 HGB 14.4 14.0-18.0 g/dl HCT L 41.3 42.0-52.0 % MCV 93.2 80-94 FL MCH H 32.5 27.0-31.0 pg MCHC 34.9 32.0-36.0 g/dl RDW 13.7 12-15 % Platelet 181 150-400 x103/mm3 MPV 9.9 6.0-10.0 FL Chemistry Group :30:00 Result Normal Range Units Sodium 137 134-145 mmol/L Potassium 4.5 3.6-5.0 mmol/L Chloride 103 98-107 mmol/L CO2 22 22-30 mmol/L Glucose 101 75-110 mg/dl BUN H 22 9-20 mg/dl Creatinine 1.01 0.8-1.7 mg/dl eGFR 70 ml/min. Calcium 9.1 8.4-10.2 mg/dl History of procedures Procedure Code Code Type Description Date Performed Performing Physician 78235 CPT-4 COMPLETE CBC, 11-19-2016 RAMON DOSHI AUTOMATED 40449 CPT-4 METABOLIC PANEL TOTAL 11-19-2016 RAMON REID Functional status No functional or cognitive status [...]
--- OUTSIDE RECORDS SUMMARY | 2017-04-15 11:29 | External Medical Summary ---
:1930 Author Organization [facility]. Summary purpose CCDA Sent to [facility] Chief Complaint and Reason for Visit Admit Diagnosis 1 FEVER Problem list No authorized problems tracked for [...] Drug neomycin Active [facility] Drug [facility] Active (joewejsv-oeqyqa-IC) (pvtcmnaz-zuwlyw-LY) [facility] Drug hydrocortisone Active (wlbcqfwh-mngqyb-OK) [facility] Drug neomycin Active (bzsjndjf-bksqmh-VZ) [facility] Drug polymyxin B Active (ufydptnb-fopeaa-SU) Immunizations Status Date Not Given Product Series # Effectiveness / Hammer Repairer Lot / Reason Reaction Expiration Given DIPH,PERTU [...]
--- OUTSIDE RECORDS SUMMARY | 2017-04-15 11:29 | External Medical Summary | Summary of Care ---
:1930 Author Name Faina Linn M.D. Address [address] [place] [address] Care Team Providers Name Role Phone Bryan [...] Status: Active Hypertension (401.9, I10) Status: Active Fatigue (780.79, R53.83) Status: Active Bradycardia (427.89, R00.1) Status: Active PVC's (premature ventricular contractions) (427.69, I49.3) Status: Active Medications Name Dates Details Calcium [...] Oliver D.O. Started 16-Aug-2012 ActiveAspirin 81 MG TABS TAKE 1 TABLET DAILY. [...] smoker Vital Signs Date Test Result Details 18-Sep-2015 14:23 BP Systolic 122 mm[Hg] Status: BP Diastolic 64 mm[Hg] Status: Heart Rate 76 /min Status: Height 66 in Status: Weight 171 lb Status: Body Mass Index Calculated 27.6 kg/m2 Status: Body Surface Area Calculated 1.87 m2 Status: Results Date Description Value Details Results not documented Plan of Care Planned Observations Name Dates Details Planned Goals not documented Goal Planned Encounters Appointment; Provider: Faina Linn On 13:45 Appointment; Provider: Faina Linn On 01-Jan-2015 14:30 Appointment; Provider: Schedule Radiology On 07-Dec-2014 09:00 Instructions Instructions not documented Encounters Appointment; Faina Linn On 18-Sep-2015 Encounter Diagnosis: Problem not documented 14:15 Appointment; Faina Linn On 03-Apr-2015 Encounter Diagnosis: Problem not documented 14:30 Appointment; Faina Linn On 25-Dec-2014 Encounter Diagnosis: Problem not documented 11:30 Appointment; Faina Linn On Encounter Diagnosis: Problem not documented 09:30 Appointment; Faina Linn On Encounter Diagnosis: Problem not documented 10:15
--- OUTSIDE RECORDS SUMMARY | 2017-04-15 11:29 | External Medical Summary ---
:1930 Author Organization [facility]. Summary purpose CCDA Sent to [facility] Chief Complaint and Reason for Visit Admit Diagnosis 1 incontinence Problem list No authorized problems tracked for [...] Drug neomycin Active [facility]cort Drug [facility] Active (rwpuppik-ehfuuo-DT) (gwjilfav-tnjtpp-YW) [facility] Drug hydrocortisone Active (ajytqykr-yvukrc-SB) [facility] Drug neomycin Active (hfpyaxvh-oclwpt-XK) [facility] Drug polymyxin B Active (hzolthcf-qjsgtn-DG) Immunizations Status Date Not Given Product Series # Effectiveness / Cv Rn Lot / Reason Reaction Expiration Given DIPH,PERTU [...]
--- OUTSIDE RECORDS SUMMARY | 2017-04-15 11:29 | External Medical Summary | Summary of Care ---
:1930 Author Name Faina Linn M.D. Address [address] [place] [address] Care Team Providers Name Role Phone Bryan [...] Details History of CABG History of Appendectomy BASIC METABOLIC PROFILE 1210 Ordered:24-Aug-2015 CBC w/ Auto Diff 7150 Ordered:25-Dec-2014 Immunization Name Dates Details Immunizations not documented [...]
--- OUTSIDE RECORDS SUMMARY | 2017-04-15 11:29 | External Medical Summary | Summary of Care ---
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 Refills: 0 Start 16-Aug-2012 Active Glucosamine Sulfate 1000 MG Oral Capsule TAKE DIRECTED. Refills: 0 Start 16-Aug-2012 Active Lovastatin 40 MG Oral Tablet TAKE 1 TABLET DAILY DIRECTED. Refills: 0 Start 16-Aug-2012 Active Carvedilol 3.125 MG Oral Tablet take 1/2 tablet twice daily Quantity: 60 Refills: 5 Start 16-Aug-2012 Active Aspirin 81 MG TABS TAKE 1 TABLET DAILY. Quantity: 30 Refills: 0 Bryan Oliver D.O. Start 16-Aug-2012 Active Alendronate Sodium 70 MG Oral Tablet TAKE DIRECTED. Refills: 0 Start Active Calcium 600/Vitamin D3 600-800 MG-UNIT Oral Tablet 1 daily Refills: 0 Start 10-Jan-2016 Active Flecainide Acetate 50 MG Oral Tablet Take 1 tablet twice daily Quantity: 180 Refills: 1 Faina Linn M.D. Start 13-Jun-2016 Active Zoloft 50 MG Oral Tablet TAKE 1 TABLET DAILY. Refills: 0 Start 29-Jul-2016 Active Allergies and Adverse Reactions Name Dates [...] smoker Vital Signs Date Test Result Details 29-Jul-2016 15:42 BP Systolic 113 mm[Hg] Status: Comments: Location: ; Position: BP Diastolic 60 mm[Hg] Status: Comments: Location: ; Position: Heart Rate 64 /min Status: Comments: Location: ; Height 66 in Status: Weight 173 lb Status: Body Mass Index Calculated 27.92 kg/m2 Status: Body Surface Area Calculated 1.88 m2 Status: Results Date Description Value Details Results not documented Plan of Care Name Dates Details Planned Observations Planned Goals not documented Planned Encounters Appointment; Provider: Faina Linn M.D. On 18-Aug-2016 11:00 Instructions Name Dates Details Instructions not documented Encounters Appointment; Brandyn Lua M.D. On 19-Feb-2016 Encounter Diagnosis: Problem not documented 10:15 Appointment; Faina Linn M.D. On 18-Feb-2016 Encounter [...]
--- OUTSIDE RECORDS SUMMARY | 2017-04-15 11:29 | External Medical Summary ---
:1930 Author Organization [facility]. Summary purpose CCDA Sent to [facility] Chief Complaint and Reason for Visit Admit Diagnosis 1 Vomiting & Fever Problem list No authorized problems tracked for [...] Drug neomycin Active [facility]cort Drug [facility] Active (vlrhylrf-ybtioc-VC) (rgtxsgfx-ppxhfj-JO) [facility] Drug hydrocortisone Active (jrvxnvfa-sbulag-MP) [facility] Drug neomycin Active (qovqgknz-bvjyen-YP) [facility] Drug polymyxin B Active (yojydxxu-zoytqi-BB) Immunizations Status Date Not Given Product Series # Effectiveness / Indian Nanny Lot / Reason Reaction Expiration Given DIPH,PERTU [...]
--- OUTSIDE RECORDS SUMMARY | 2017-04-15 11:29 | External Medical Summary ---
:1930 Author Organization [facility]. Summary purpose CCDA Sent to [facility] Chief Complaint and Reason for Visit Admit Diagnosis 1 FALL WITH LOSS OF CONSCIOUSNESS Problem list No authorized problems tracked for [...] Relevant diagnostic tests and/or laboratory data RESULTS [id number]:00:00 Discharge Summary Pt admitted from ER with syncopal episode and fall - then noted to have elevated troponin, and reports hx of chest pain both prior to and after fall. Develops nausea and headache, as well as neck pain. Arrangements made for transfer to [facility], with cardiac eval as well. CBC [id number]:45:00 Result Normal Range Units WBC HC 15.67 5.8-10.8 x103/mm3 CALLED TO WENDY/BRYAN @ 21: LLH Neutrophil % H 83.7 50-70 % Lymph % L 8.4 20-50 % Mclennan % 7.7 1.0-9.0 % Eosinophil % 0.1 0-4 % Basophil % 0.1 0-2 % Neutrophil # H 13.11 3.0-7.0 x103/mm3 Lymph # 1.31 1.0-4.0 x103/mm3 Mclennan # H 1.21 0.0-0.8 x103/mm3 Eosinophil # 0.02 0-0.5 x103/mm3 Basophil # 0.02 0-0.2 x103/mm3 RBC 4.92 4.60-6.20 x103/mm3 HGB 15.6 14.0-18.0 g/dl HCT 45.1 42.0-52.0 % MCV 91.7 80-94 FL MCH H 31.7 27.0-31.0 pg MCHC 34.6 32.0-36.0 g/dl RDW 13.7 12-15 % Platelet 158 150-400 x103/mm3 MPV 9.5 6.0-10.0 FL Manual Differential :45:00 Result Normal Range Units Seg 83.0 Lymph 4.0 Mclennan 6.0 Bands 5.0 Lymph Atypical 2.0 Urinalysis :45:00 Result Normal Range Units Site VOID Result Amended on 2016-07-07 at 22:24:29. Previous status was FR. Color Yellow Result Amended on 2016-07-07 at 22:24:29. Previous status was FR. Urine Appearance Clear Result Amended on 2016-07-07 at 22:24:29. Previous status was FR. Specific [place] 1.025 1.005-1.030 Result Amended on 2016-07-07 at 22:24:29. Previous status was FR. pH 5.5 5.0-9.0 Result Amended on 2016-07-07 at 22:24:29. Previous status was FR. Protein AB Trace Negative Result Amended on 2016-07-07 at 22:24:29. Previous status was FR. Glucose Negative Negative Result Amended on 2016-07-07 at 22:24:29. Previous status was FR. Ketones AB 2+ Negative Result Amended on 2016-07-07 at 22:24:29. Previous status was FR. Bilirubin Negative Negative Result Amended on 2016-07-07 at 22:24:29. Previous status was FR. Blood AB 2+ Negative Result Amended on 2016-07-07 at 22:24:29. Previous status was FR. Nitrite Negative Negative Result Amended on 2016-07-07 at 22:24:29. Previous status was FR. Urobilinogen 0.2 0.20 mg/dl Result Amended on 2016-07-07 at 22:24:29. Previous status was FR. Leukocyte Negative Negative Result Amended on 2016-07-07 at 22:24:29. Previous status was FR. Urine Bacteria Trace Urine Comments SPECIMEN DID NOT MEET CRITERIA FOR CULTURE. SPECIMEN WILL NOT BE CULTURED UNLESS REQUESTED BY PHYSICIAN. 17LLH Urine RBC N0-2 Urine WBC N0-2 Chemistry Group :45:00 Result Normal Range Units Sodium 138 134-145 mmol/L Potassium 4.3 3.6-5.0 mmol/L Chloride 101 98-107 mmol/L CO2 25 22-30 mmol/L Glucose H 165 75-110 mg/dl BUN H 29 9-20 mg/dl Creatinine 1.06 0.8-1.7 mg/dl eGFR 67 ml/min. Total Protein 7.4 6.3-8.2 g/dl Albumin 4.3 3.5-5.0 g/dl Calcium 9.0 8.4-10.2 mg/dl Alk Phos 73 38-126 U/L AST H 38 14-36 U/L ALT 35 11-66 U/L T Bili H 1.4 0.2-1.3 mg/dl A/G Ratio 1.4 Ratio Special Chemistry Group [id number]:45:00 Result Normal Range Units Troponin I HC 0.80 ng/ml NEGATIVE - 0.06-0.30 ng/ml INCONCLUSIVE - 0.31-0.64 ng/ml; Suggest Repeating in 2-4 hours POSITIVE - >0.64 ng/ml; Probable AMI CALLED TO WENDY/RN @ 21: [facility] TSH 1.12 0.50-6.00 uIU/mL Reference Lab Group [id number]:00 Result Normal Range Units Culture Blood Source See Comment Result Amended on 2016-07-14 at 04:18:30. Previous status was FR. Test Culture Blood Source with result ofSee Comment was originally reported asBLOOD 2 and was changed on 07/09/2016 04:15 by AMS Comment deleted 07/14/2016 04:16 by AMS : .Site: Received : 07/08/16 12:45 .Order#: [id number] Blood Culture PRELIM 07/09/16 04:15 F .No growth after 12 hours incubation. Nursing unit will be . called if growth is detected. .- .F: Performed at: [facility], [address] [place] [address], [facility] FOR RESULTS: * - NEW RESULT - RESULT WAS MODIFIED AFTER FINAL STATUS SET Blood Culture performed at [facility], [address] [place] [address], [place] [address] [employer] Analia Dhaliwal DO .Site: Received : 07/08/16 12:45 .Order#: [id number] Blood Culture FINAL 07/14/16 04:15 F .No growth after 5 days of incubation. .F: Performed at: [facility], [address] [place] [address], [place] FOR RESULTS: * - NEW RESULT - RESULT WAS MODIFIED AFTER FINAL STATUS SET Blood Culture performed at [facility], [address] [place] [address] [employer] Analia Dhaliwal, Test Culture Blood Source with result ofSee Comment was originally reported asSee Comment and was changed on 07/14/2016 04:16 by AMS Culture Blood See Comment Result Amended on 2016-07-14 at 04:18:30. Previous status was FR. Test Culture Blood with result ofSee Comment was originally reported as See Comment and was changed on 07/14/2016 04:16 by [facility] [id number]:00 Result Normal Range Units Culture Blood Source See Comment Result Amended on 2016-07-14 at 04:18:29. Previous status was FR. Test Culture Blood Source with result ofSee Comment was originally reported asBLOOD 1 and was changed on 07/09/2016 04:15 by AMS Comment deleted 07/14/2016 04:16 by AMS : .Site: Received : 07/08/16 12:45 .Order#: [id number] Blood Culture PRELIM 07/09/16 04:15 F .No growth after 12 hours incubation. Nursing unit will be . called if growth is detected. .- .F: Performed at: [facility], [address] [place] [address], [place] FOR RESULTS: * - NEW RESULT - RESULT WAS MODIFIED AFTER FINAL STATUS SET [place] [address] [employer] Analia Dhaliwal DO .Site: Received : 07/08/16 12:45 .Order#: [id number] Blood Culture FINAL 07/14/16 04:15 F .No growth after 5 days of incubation. .F: Performed at: [facility], [address] [place] [address], [place] FOR RESULTS: * - NEW RESULT - RESULT WAS MODIFIED AFTER FINAL STATUS SET [place] [address] [employer]member Analia Dhaliwal DO Test Culture Blood Source with result ofSee Comment was originally reported asSee Comment and was changed on 07/14/2016 04:16 by AMS Culture Blood See Comment Result Amended on 2016-07-14 at 04:18:29. Previous status was FR. Test Culture Blood with result ofSee Comment was originally reported as See Comment and was changed on 07/14/2016 04:16 by AMS Urinalysis with Microscopic [id number]:00 Result Normal Range Units Site VOID Result Amended on 2016-07-07 at 22:24:29. Previous status was FR. Color Yellow Result Amended on 2016-07-07 at 22:24:29. Previous status was FR. Urine Appearance Clear Result Amended on 2016-07-07 at 22:24:29. Previous status was FR. Specific [place] 1.025 1.005-1.030 Result Amended on 2016-07-07 at 22:24:29. Previous status was FR. pH 5.5 5.0-9.0 Result Amended on 2016-07-07 at 22:24:29. Previous status was FR. Protein AB Trace Negative Result Amended on 2016-07-07 at 22:24:29. Previous status was FR. Glucose Negative Negative Result Amended on 2016-07-07 at 22:24:29. Previous status was FR. Ketones AB 2+ Negative Result Amended on 2016-07-07 at 22:24:29. Previous status was FR. Bilirubin Negative Negative Result Amended on 2016-07-07 at 22:24:29. Previous status was FR. Blood AB 2+ Negative Result Amended on 2016-07-07 at 22:24:29. Previous status was FR. Nitrite Negative Negative Result Amended on 2016-07-07 at 22:24:29. Previous status was FR. Urobilinogen 0.2 0.20 mg/dl Result Amended on 2016-07-07 at 22:24:29. Previous status was FR. Leukocyte Negative Negative Result Amended on 2016-07-07 at 22:24:29. Previous status was FR. Urine Bacteria Trace Urine Comments SPECIMEN DID NOT MEET CRITERIA FOR CULTURE. SPECIMEN WILL NOT BE CULTURED UNLESS REQUESTED BY PHYSICIAN. 07/07/16LLH Urine RBC N0-2 Urine WBC N0-2 History of procedures No procedures recorded for this patient visit. Functional status Functional Status Finding Observation Time Weight Bearing Statu Full :45 Cognitive Status Finding Observation Time Level of Consciousne Alert :00 Oriented to Person Yes :[address] Yes : Oriented to Time Yes :00 Vital signs Type Value Date Respirations 24 :33 Pulse 73 :33 O2 Saturation 94% :33 Systolic Blood Press 133mm/HG :33 Diastolic Blood Pres 54mm/HG [id number]:33 Temperature (Fahr) 98.5Degrees :33 Height 66in :55 Weight 165LB :55 Social history Type Value Smoking Status NEVER SMOKER Treatment Plan Treatment Plan at Transfer per EMS/ ALS - to [place]. DNR. Dr Dotson accepts care. Hospital discharge instructions No discharge instruction text is available for this visit.
--- OUTSIDE RECORDS SUMMARY | 2017-04-15 11:30 | External Medical Summary ---
:1930 Author Name GENERATED, SYSTEM Care Team Providers Name Role Phone MD DOSHI KATHRYN Primary Care Provider [phone] Reason For Visit Chief Complaint NEW ANTERIOR [facility]MIA,[facility] Social History Social History from 01/01/2015 8:04 PM:Tobacco Use? : Never Smoker Functional Status Functional Status from 01/01/2015 4:36 PM:LOC : AlertOriented To : Person,Place, Time,EventWeight Bearing Status : FullAssist Level : Independent# Assists : Independent Vital Signs Hospital Vital Signs from 01/01/2015 8:15 PM:Height : 5/5 ft,inPulse : 63Respirations : 20BP : 119/53Hospital Vital Signs from 01/01/2015 7:44 PM: Height : 5/5 ft,inPulse : 62Respirations : 20BP : 123/59Hospital Vital Signs from 01/01/2015 7:15 PM:Height : 5/5 ft,inPulse : 62Respirations : 20BP : 123/ 59Hospital Vital Signs from 01/01/2015 5:44 PM:Height : 5/5 ft,inPulse : 64Respirations : 18BP : 141/65Hospital Vital Signs from 01/01/2015 5:15 PM: Height : 5/5 ft,inPulse : 58Respirations : 18BP : 119/51Hospital Vital Signs from 01/01/2015 5:00 PM:Height : 5/5 ft,inPulse : 60Respirations : 18BP : 150/ 70Hospital Vital Signs from 01/01/2015 4:45 PM:Height : 5/5 ft,inPulse : 55Respirations : 18BP : 153/67Hospital Vital Signs from 01/01/2015 4:36 PM:Heart Rate : 57Hospital Vital Signs from 01/01/2015 4:30 PM:Weight : 80.3/ kgHeight : 5 /5 ft,inTemperature : 96.9 FPulse : 55Respirations : 20BP : 163/67Hospital Vital Signs from 01/01/2015 4:15 PM:Height : 5/5 ft,inTemperature : 97.2 FPulse : 57Respirations : 20BP : 162/72 Results Problems Encounter Diagnosis Fall Risk Comment:Problem resolved by Soarian Workflow upon Discharge, Status: Resolved. Encounters Encounter Diagnosis Fall Risk Comment:Problem resolved by Soarian Workflow upon Discharge, Status: Resolved. Plan of Care Follow-up Appointments from 01/01/2015 8:04 PM:#1 Office appointment: : Dr. Linn #1 Date/Time : 04/03/2015 2:30 AMAddress # 1 : [facility]: [address] [place]- or Procedures No relevant procedures performed. Immunizations No immunizations administered or ordered. Hospital Course Hospital Discharge Instructions How to care for yourself at home from 01/01/2015 8:04 PM:Discharge Activity : Activity as tolerated,May Shower,Do not engage in sports, heavy work or heavy lifting until your physician gives permission,No Tub BathDischarge Diet : As before hospitalizationDischarge Wound Care : Keep dressings dryCall your doctor if: : Fever over 101 F or severe chills,Chest pain or other unexplained symptoms ,Tingling or numbness develops,A sudden increase or decrease in weight,You have persistent or worsening symptoms,If you have Heart Failure and you gain 3 pounds within 1 week or your symptoms worsen. (Weigh at home tomorrow morning) Specific Discharge Teaching Instructions provided: : YesDischarge on Warfarin : No Allergies, Adverse Reactions, Alerts No Latex Allergy.No IV Contrast Allergy.No Known Drug Allergies. Medication It is the responsibility of the patient or patient service support representative to confirm the list of medicationswith either the patient's personal care provider or the patient's follow-up care provider to ensure the patient has an appropriate list of medications to take at home. Discharge medicationsContinued medicationsalendronate 70 mg Tablet, Ordered By: TESS LINN MD Directions: 1 tablet oral weekly aspirin 81 mg tablet,chewable, Ordered By: TESS LINN MD Directions: 1 tablet oral daily Additional Instructions: Took 4 tabs this AM per instructions calcium citrate 250 mg calcium Tablet, Ordered By: TESS LINN MD Directions: 1 tablet oral daily glucosamine sulfate 1,000 mg Capsule, Ordered By: TESS LINN MD Directions: 1 capsule oral daily every morning and at bedtime carvedilol 6.25 mg Tablet, Ordered By: TESS LINN MD Directions: 1 tablet oral twice a day during meal lisinopril 10 mg Tablet, Ordered By: TESS LINN MD Directions: 1 tablet oral daily lovastatin 40 mg Tablet, Ordered By: TESS LINN MD Directions: 1 tablet oral daily at bedtime Stopped medicationsNone
--- OUTSIDE RECORDS SUMMARY | 2017-04-15 11:30 | External Medical Summary | Summary of Care ---
:1930 Author Name Faina Linn M.D. Address [address] [place] [address] Care Team Providers Name Role Phone Bryan Oliver D.O. Unavailable Unavailable Veronica Schafre Primary Care Provider Unavailable Unavailable Unavailable Unavailable [...] Provider: Faina Linn On 09:00 Appointment; Provider: Faina Linn On 01-Jan-2015 14:30 [...]
--- OUTSIDE RECORDS SUMMARY | 2017-04-15 11:30 | External Medical Summary | Summary of Care ---
[...] smoker Vital Signs Date Test Result Details 18-Feb-2016 11:19 BP Systolic 116 mm[Hg] Status: Comments: Location: ; Position: BP Diastolic 74 mm[Hg] Status: Comments: Location: ; Position: Heart Rate 54 /min Status: Comments: Location: ; Height 66 in Status: Results Date Description Value Details Results not documented Plan of Care Name Dates Details Planned Observations Planned Goals not documented Planned Encounters Appointment; Provider: Faina Linn M.D. On 18-Aug-2016 11:00 Appointment; Provider: Brandyn Lua M.D. On 19-Feb-2016 10:15 Instructions Name Dates Details Instructions not documented Encounters Appointment; Faina Linn M.D. On 10-Jan-2016 Encounter [...]
--- OUTSIDE RECORDS SUMMARY | 2017-04-15 11:30 | External Medical Summary ---
:1930 Author Name GENERATED, SYSTEM Care Team Providers Name Role Phone MD DOSHI KATHRYN Primary Care Provider [phone] Reason For Visit Reason for Visit from 01/09/2015 7:50 AM:Pt Stated Reason for Adm : "right knee replacement" Chief Complaint OA (R) KNEE,RIGHT TOTAL KNEE ART Social History Social History from 01/12/2015 9:38 AM:Tobacco Use? : Never SmokerSocial History from 01/09/2015 7:50 AM:Tobacco Use? : Never Smoker Functional Status Functional Status from 01/13/2015 11:37 AM:# Assists : 1Functional Status from 04/2015 9:41 AM:LOC : AlertOriented To : Person,Place,EventWeight Bearing Status : FullAssist Level : Dependent# Assists : 1Functional Status from 2014 8:15 PM:LOC : AlertOriented To : Person,Place,Time,EventWeight Bearing Status : FullAssist Level : Partial# Assists : 2Functional Status from 2014 8:15 AM:LOC : AlertOriented To : PersonWeight Bearing Status : FullAssist Level : Partial# Assists : 2Functional Status from 01/12/2015 4:28 AM:# Assists : 3Functional Status from 01/11/2015 8:30 PM:LOC : ConfusedOriented To : PersonWeight Bearing Status : FullAssist Level : Partial# Assists : 1Functional Status from 01/11/2015 8:45 AM:LOC : AlertOriented To : Person,Place,TimeWeight Bearing Status : FullAssist Level : Partial# Assists : 1Functional Status from 8:11 PM:LOC : AlertOriented To : Person,PlaceWeight Bearing Status : FullAssist Level : Partial# Assists : 2Functional Status from 01/10/2015 6:29 PM: # Assists : 1Functional Status from 01/10/2015 9:48 AM:# Assists : 1Functional Status from 01/10/2015 8:38 AM:Oriented To : Person,EventFunctional Status from 01/10/2015 8:13 AM:Oriented To : PersonFunctional Status from 01/10/2015 7:50 AM:LOC : ConfusedOriented To : PersonWeight Bearing Status : FullAssist Level : Partial # Assists : 2Functional Status from 01/09/2015 7:20 [...] Independent Vital Signs Hospital Vital Signs from 01/13/2015 10:18 AM:Height : 5/5 ft,inTemperature : 98.7 FPulse : 67Respirations : 18BP : 145/65Hospital Vital Signs from 01/13/2015 7:17 AM:Height : 5/5 ft,inTemperature : 98.1 FPulse : 74Respirations : 16BP : 145/45Hospital Vital Signs from 01/12/2015 10:25 PM:Height : 5/5 ft, inTemperature : 97 FPulse : 76Respirations : 20BP : 120/54Hospital Vital Signs from 01/12/2015 7:07 PM:Height : 5/5 ft,inPulse : 74Respirations : 20BP : 115/ 53Hospital Vital Signs from 01/12/2015 3:59 PM:Height : 5/5 ft,inTemperature : 97.2 FPulse : 77Respirations : 20BP : 131/60Hospital Vital Signs from 01/12/2015 6:25 AM:Height : 5/5 ft,inTemperature : 98.3 FPulse : 91Respirations : 20BP : 146/66Hospital Vital Signs from 01/11/2015 10:44 PM:Height : 5/5 ft, inTemperature : 98.2 FPulse : 77Respirations : 20BP : 113/52Hospital Vital Signs from 01/11/2015 3:10 PM:Height : 5/5 ft,inTemperature : 973.9 FPulse : 74Respirations : 20BP : 135/57Hospital Vital Signs from 01/11/2015 6:08 AM: Height : 5/5 ft,inTemperature : 98.3 FPulse : 77Respirations : 14BP : 148/ 66Hospital Vital Signs from 01/11/2015 4:29 AM:Weight : 62.5/ kgHeight : 5/5 ft, inHospital Vital Signs from 01/10/2015 10:38 PM:Height : 5/5 ft,inTemperature : 99.4 FPulse : 80Respirations : 16BP : 141/63Hospital Vital Signs from 01/10/2015 3 :07 PM:Height : 5/5 ft,inTemperature : 100.0 FPulse : 70Respirations : 16BP : 153/69Hospital Vital Signs from 01/10/2015 11:30 AM:Height : 5/5 ft,inTemperature : 99.1 FPulse : 73Respirations : 14BP : 133/62Hospital Vital Signs from 2014 9:06 AM:Height : 5/5 ft,inHospital Vital Signs from 01/10/2015 7:24 AM: Height : 5/5 ft,inTemperature : 99.1 FPulse : 73Respirations : 14BP : 136/ 82Hospital Vital Signs from 01/10/2015 2:17 AM:Height : 5/5 ft,inTemperature : 98.6 FPulse : 77Respirations : 20BP : 127/57Hospital Vital Signs from 01/09/2015 10:25 PM:Height : 5/5 ft,inTemperature : 99.3 FPulse : 65Respirations : 16BP : 135/60Hospital Vital Signs from 01/09/2015 7:29 PM:Height : 5/5 ft,inTemperature : 98.7 FPulse : 67Respirations : 16BP : 138/67Hospital Vital Signs from 2014 4:09 PM:Height : 5/5 ft,inPulse : 60Respirations : 16BP : 137/87Hospital Vital Signs from 01/09/2015 3:00 PM:Height : 5/5 ft,inPulse : 59Respirations : 16BP : 157/71Hospital Vital Signs from 01/09/2015 2:31 PM:Height : 5/5 ft,inPulse : 53Respirations : 16BP : 139/61Hospital Vital Signs from 01/09/2015 2:00 PM: Height : 5/5 ft,inPulse : 53Respirations : 16BP : 134/57Hospital Vital Signs from 01/09/2015 1:45 PM:Height : 5/5 ft,inPulse : 55Respirations : 16BP : 146/ 67Hospital Vital Signs from 01/09/2015 1:30 PM:Height : 5/5 ft,inPulse : 54Respirations : 16BP : 148/65Hospital Vital Signs from 01/09/2015 1:21 PM:Height : 5/5 ft,inTemperature : 97.2 FPulse : 53Respirations : 16BP : 135/63Hospital Vital Signs from 01/09/2015 12:50 PM:Heart Rate : 51Resp Rate : 15Systolic BP ( mmHg) : 126Diastolic BP (mmHg) : 56Mean BP (mmHg) : 73O2 Saturation (%) : 97Hospital Vital Signs from 01/09/2015 12:45 PM:Temp : 97.6Heart Rate : 50Resp Rate : 15Systolic BP (mmHg) : 111Diastolic BP (mmHg) : 58Mean BP (mmHg) : 78O2 Saturation (%) : 96Hospital Vital Signs from 01/09/2015 12:40 PM:Heart Rate : 50Resp Rate : 17Systolic BP (mmHg) : 112Diastolic BP (mmHg) : 64Mean BP (mmHg) : 76O2 Saturation (%) : 95Hospital Vital Signs from 01/09/2015 12:35 PM:Heart Rate : 47Resp Rate : 17Systolic BP (mmHg) : 115Diastolic BP (mmHg) : 63Mean BP ( mmHg) : 78O2 Saturation (%) : 95Hospital Vital Signs from 01/09/2015 12:30 PM: Heart Rate : 49Resp Rate : 18O2 Saturation (%) : 96Hospital Vital Signs from 01/09 12:25 PM:Temp : 97.6Heart Rate : 51Resp Rate : 14Systolic BP (mmHg) : 120Diastolic BP (mmHg) : 97Mean BP (mmHg) : 104O2 Saturation (%) : 100Hospital Vital Signs from 01/09/2015 12:20 PM:Heart Rate : 49Resp Rate : 12Systolic BP ( mmHg) : 127Diastolic BP (mmHg) : 77Mean BP (mmHg) : 89O2 Saturation (%) : 100Hospital Vital Signs from 01/09/2015 12:15 PM:Heart Rate : 49Resp Rate : 12Systolic BP (mmHg) : 73Diastolic BP (mmHg) : 49Mean BP (mmHg) : 62O2 Saturation (%) : 100Hospital Vital Signs from 01/09/2015 12:10 PM:Heart Rate : 48Resp Rate : 15Systolic BP (mmHg) : 87Diastolic BP (mmHg) : 53Mean BP (mmHg) : 74O2 Saturation (%) : 100Hospital Vital Signs from 01/09/2015 12:05 PM:Temp : 97.2Heart Rate : 48Resp Rate : 14Systolic BP (mmHg) : 110Diastolic BP (mmHg) : 59Mean BP (mmHg) : 72O2 Saturation (%) : 99Hospital Vital Signs from 01/09/2015 12 :00 PM:Heart Rate : 50Resp Rate : 18Systolic BP (mmHg) : 111Diastolic BP (mmHg) : 59Mean BP (mmHg) : 85O2 Saturation (%) : 97Hospital Vital Signs from 01/09/2015 11:55 AM:Heart Rate : 50Resp Rate : 18Systolic BP (mmHg) : 107Diastolic BP (mmHg ) : 51Mean BP (mmHg) : 77O2 Saturation (%) : 99Hospital Vital Signs from 2014 11:50 AM:Heart Rate : 51Resp Rate : 19O2 Saturation (%) : 98Hospital Vital Signs from 01/09/2015 11:45 AM:Temp : 98Systolic BP (mmHg) : 102Diastolic BP (mmHg ) : 49Mean BP (mmHg) : 65O2 Saturation (%) : 94Hospital Vital Signs from 2014 7:50 AM:Weight : 80.286/ kgHeight : 5/5 ft,inHospital Vital Signs from 2014 7:44 AM:Weight : 75/ kgHeight : 5/4.5 ft,inTemperature : 97 FPulse : 63Respirations : 18BP : 133/66 Results Chemistry from 01/13/2015 6:40 [id number] MMOL/L L (136-145 MMOL/L) POTASSIUM3.5 MMOL/L (3.5-5.1 MMOL/L) [id number] MMOL/L (98-107 MMOL/L) JQR817.3 MMOL/L (21.0-32.0 MMOL/L) ANION GAP8.7 MMOL/L (8.0-16.0 MMOL/L) BUN24 MG/DL H (7-18 MG/DL) CREATININE0.95 MG/DL (0.70-1.30 MG/DL) BUN/CREATININE RATIO25.3 H (9.1-17.0 ) TSSKDNY670 MG/DL H (65-99 MG/DL) GFR EST NON AFR RCHJEABS68 ML/MIN GFRA EST AFR AMER85 ML/MIN CALCIUM7.7 MG/DL L (8.5-10.1 MG/DL)Chemistry from 01/12/2015 4:30 [id number] MMOL/L L (136-145 MMOL/L) POTASSIUM3.7 MMOL/L (3.5-5.1 MMOL/L) KBRLBDGO60 MMOL/L (98-107 MMOL/L) LPY839.6 MMOL/L (21.0-32.0 MMOL/L) ANION GAP12.4 MMOL/L (8.0-16.0 MMOL/L) BUN21 MG/DL H (7-18 MG/DL) CREATININE1.16 MG/DL (0.70-1.30 MG/DL) BUN/CREATININE RATIO18.1 H (9.1-17.0 ) UNQCGOR346 MG/DL H (65-99 MG/DL) GFR EST NON AFR RLTNPHGG69 ML/MIN GFRA EST AFR AMER67 ML/MIN CALCIUM8.4 MG/DL L (8.5-10.1 MG/DL)Chemistry from 01/11/2015 5:24 [id number] MMOL/L L (136-145 MMOL/L) POTASSIUM4.3 MMOL/L (3.5-5.1 MMOL/L) ATMSGDJE539 MMOL/L (98-107 MMOL/L) UHQ117.4 MMOL/L (21.0-32.0 MMOL/L) ANION GAP6.6 MMOL/L L (8.0-16.0 MMOL/L) BUN14 MG/DL (7-18 MG/DL) CREATININE0.96 MG/DL (0.70-1.30 MG/DL) BUN/CREATININE RATIO14.6 (9.1-17.0 ) KTFPZYO393 MG/DL H (65-99 MG/DL) GFR EST NON AFR CCJSPIMG49 ML/MIN GFRA EST AFR AMER84 ML/MIN CALCIUM7.9 MG/DL L (8.5-10.1 MG/DL)Chemistry from 01/10/2015 4:47 NPRQAGDD719 MMOL /L (136-145 MMOL/L) POTASSIUM4.1 MMOL/L (3.5-5.1 MMOL/L) HOFYLJPL721 MMOL/L (98-107 MMOL/L) GAS549.1 MMOL/L (21.0-32.0 MMOL/L) ANION GAP6.9 MMOL/L L (8.0-16.0 MMOL/L) BUN16 MG/DL (7-18 MG/DL) CREATININE1.04 MG/DL (0.70-1.30 MG/DL) BUN/CREATININE RATIO15.4 (9.1-17.0 ) HQXZLUG992 MG/DL H (65-99 MG/DL) GFR EST NON AFR KNHTZSWU48 ML/MIN GFRA EST AFR AMER77 ML/MIN CALCIUM7.9 MG/DL L (8.5-10.1 MG/DL)Chemistry from 01/09/2015 8:30 [id number] MMOL /L (136-145 MMOL/L) POTASSIUM4.0 MMOL/L (3.5-5.1 MMOL/L) XQVOAHKD284 MMOL/L (98-107 MMOL/L) YON209.3 MMOL/L (21.0-32.0 MMOL/L) ANION GAP7.7 MMOL/L L (8.0-16.0 MMOL/L) BUN22 MG/DL H (7-18 MG/DL) CREATININE1.05 MG/DL (0.70-1.30 MG/DL) BUN/CREATININE RATIO21.0 H (9.1-17.0 ) WOADSAS651 MG/DL H (65-99 MG/DL) GFR EST NON AFR KESRTGFY48 ML/MIN GFRA EST AFR AMER76 ML/MIN CALCIUM8.6 MG/DL (8.5-10.1 MG/DL)Hematology from 01/13/2015 6:40 AMWBC10.0 X10e3/ UL (3.6-11.2 X10e3/UL) RBC3.72 X10e6/UL L (4.06-5.63 X10e6/UL) LKGQIHJJSJ46.8 G/DL L (12.5-16.3 G/DL) THJEBJEHOY33.1 % L (36.7-47.1 %) MCV91.7 FL (80.0-100.0 FL) MCH31.7 PG (27.0-33.0 PG) MCHC34.5 G/DL (32.0-36.0 G/DL) RDW13.6 % (12.3-17.0 %) RDWSD43.8 (37.1-47.8 ) XVVUTTPA362 X10e3/UL L (159-386 X10e3/UL) MPV7.8 FL (7.4-10.4 FL) MANUAL DIFFPERFORMED SEGS73.0 % BANDS2.0 % LRBVFVGYDJT54.0 % MONOCYTES9.0 % EOSINOPHILS2.0 % BASOPHILS0.0 % ABSOLUTE NEUTROPHILS7.50 X10e3/UL (1.80-7.80 X10e3/UL) ABSOLUTE LYMPHOCYTES1.40 X10e3/UL (1.00-3.00 X10e3/UL) ABSOLUTE MONOCYTES0.90 X10e3/UL (0.30-1.00 X10e3/UL) ABSOLUTE EOSINOPHILS0.20 X10e3/UL (0.00-0.50 X10e3/UL) ABSOLUTE BASOPHILS0.00 X10e3/UL (0.00-0.20 X10e3/UL) POLYCHROMASIA1+ TOXIC GRANULATION1+Hematology from 01/12/2015 4:30 IWNHCTNDJMNG21.5 G/DL (12.5- 16.3 G/DL) HLYIKEOKAY72.1 % (36.7-47.1 %)Hematology from 01/11/2015 5:24 TQXPYAHRDKBE22.4 G/ DL (12.5-16.3 G/DL) CMGZQARXEQ40.6 % (36.7-47.1 %)Hematology from 01/10/2015 4:47 KAUEKRMIDHJH42.0 G/ DL (12.5-16.3 G/DL) WJYWGPQUPO34.9 % (36.7-47.1 %)Urinalysis from 01/10/2015 2:25 AMURINE COLORYELLOW (STRAW/YELL/DK YELL ) URINE APPEARANCETURBID (CLEAR ) URINE PH5.0 (5.0-8.0 ) URINE SPECIFIC GRAVITY>1.030 (<=1.005->=1.030 ) URINE GLUCOSENEGATIVE MG/DL (NEGATIVE MG/DL) URINE BILIRUBINNEGATIVE (NEGATIVE ) URINE KETONESNEGATIVE MG/DL (NEGATIVE MG/DL) URINE BLOODLARGE A (NEGATIVE ) URINE XFREHHY33 MG/DL A (NEGATIVE MG/DL) URINE UROBILINOGEN0.2 EU/DL (0.2-1.0 EU/DL) URINE NITRITESNEGATIVE (NEGATIVE ) *URINE LEUKOCYTESNEGATIVE (NEGATIVE ) MICROSCOPIC EXAM PERFORMEDPERFORMED WBC0-1 /HPF (0-5 /HPF) VZC30-69 /HPF A (0-1 /HPF) BACTERIAFEW /HPF A (NEGATIVE /HPF) AMORPH. URATE LEONCIO.MANY /HPF (NEGATIVE /HPF)Blood Bank from 01/09/2015 8:30 AMANTIBODY SCREEN (Indirect [place])NEG ABO GROUPO RH TYPEPOS Problems Encounter Diagnosis Acute Pain Status:Active.Altered Mental Status Comment:Problem resolved by [facility]arian Workflow upon Discharge, Status:Resolved.Constipation Comment:Problem resolved by Soarian Workflow upon Discharge, Status:Resolved.Fall Risk Comment: Problem resolved by Soarian Workflow upon Discharge, Status:Resolved.Infection Risk Comment:Problem resolved by Soarian Workflow upon Discharge, Status: Resolved.Mobility Impairment Comment:Problem resolved by Soarian Workflow upon Discharge, Status:Resolved.Osteoarthritis Status:Active. Encounters Encounter Diagnosis Acute Pain Status:Active.Altered Mental Status Comment:Problem resolved by Soarian Workflow upon Discharge, Status:Resolved.Constipation Comment:Problem resolved by Soarian Workflow upon Discharge, Status:Resolved.Fall Risk Comment: Problem resolved by Soarian Workflow upon Discharge, Status:Resolved.Infection Risk Comment:Problem resolved by Soarian Workflow upon Discharge, Status: Resolved.Mobility Impairment Comment:Problem resolved by Soarian Workflow upon Discharge, Status:Resolved.Osteoarthritis Status:Active. Plan of Care Follow-up Appointments from 01/12/2015 9:38 AM:#1 Office appointment: : to be arrangedTreatment Plan from 01/13/2015 2:28 PM:Care Management Note :SIDDHARTH received call from Dasha RN providing pt care stating has rounded and discharging pt to returnto the fpc at [facility] today. Pt will need a wheelchair transport by the [facility] and the spouse willride alone.Siddharth contacted amy at [facility]. She requested the orders to be faxed and then would call back when transportation arranged. Siddharth received call back from Amy who scheduled a wc transport at 130p. The RN would communicate to the pt and spouse of the transport time.Treatment Plan from 01/12/2015 10:15 AM:Care Management Note : talked with Otoniel LAW - he states that the patient is quite confused and he is okay from Ortho side to send the patient to skilled but he will leave it to Dr Linn. Talked with Dr Helga Linn and he feels that discharge should be cancelled for today. Otoniel LAW notified. Harriett MESSINA aware as well as [place] ADAMS.Care Management Note : Arranged for wheel chair van transfer to [facility] for 11a.m. and then cancelled it when hospitalist cancelled discharge due to paitent's confusion having increased.Treatment Plan from 01/11/2015 10:35 AM:Care Management Note : set up worker spoke to patient regarding his discharge plan to skilled care at [facility] tomorrow; patient denies any concerns with discharge. SIDDHARTH explained process for discharge tomorrow and will set up transportation with [facility]. Patient agreeable. Noother needs identified.Treatment Plan from 01/11/2015 9:49 AM:Care Management Note : patient continues with PT/OT. anticipate discharge tomorrow to [facility], skilled. Continues to monitor labs and vital signs. keep pain controlled.Treatment Plan from 01/10/2015 11:25 AM:Care Management Note : set up worker spoke to patient, patient's spouse Leidy, and patient's daughter regarding discharge plan and discharge concerns. Leidy confirmed they reside in the independent living at [facility]; she is planning for him to go to the "rapid recovery" at [facility] skilled care. Leidy states she has already given PV a heads up regarding patient. Family is also requesting for PV to transport at discharge. SIDDHARTH discussed discharge date for Thursday if medically stable; family voiced understanding. SIDDHARTH made referral to [facility]; will follow.Treatment Plan from 01/10/2015 9:30 AM:Care Management Note : set up worker attempted to discuss with patient discharge plan and discharge concerns; patient is currently on a 1:1 supervision due to confusion. Patient was able to confirm heresides with his spouse at [facility] in [place]; however, he could not tell me if he was in independent living or terminal gauger care. SW attempted to ask further questions but he kept falling asleep. SIDDHARTH left contact information on board and requested clerk Simran providing one on one supervision to call me if family comes in to visit. SIDDHARTH attempted to contact patient's spouse Leidy via phone; left message on home number.Treatment Plan from 2014 8:12 AM:Care Management Note :Admission status: Inpatient.Patient [...] Activity : Activity as tolerated,No Tub BathDischarge Diet : As before hospitalizationDischarge Diet: : Regular diet with 1 Glucerna shake daily for snack (chocolate)Discharge Wound Care : Keep dressings dry,Notify your physician if the following develops: redness, [...] the responsibility of the patient or patient hr representative to confirm the list of medicationswith [...] Instructions: GIVE NEEDED FOR PAIN SCALE 1-3 haloperidol 0.5 mg Tablet, Ordered By: ANTONIO LINN MD Directions: 1 tablet oral twice a day Continued medicationscarvedilol 6.25 mg Tablet, Ordered By: THANH PINO Directions: 1 tablet oral twice a day during meal lisinopril 10 mg Tablet, Ordered By: THANH PINO Directions: 1 tablet oral daily lovastatin 40 mg Tablet, Ordered By: THANH PINO Directions: 1 tablet oral daily at bedtime alendronate 70 mg Tablet, Ordered By: THANH PINO Directions: 1 tablet oral weekly aspirin 81 mg tablet,chewable, Ordered By: ANTONIO LINN MD Directions: 1 tablet oral daily Stopped medicationsCalcium Carbonate with Vitamin D3 600 mg/800 units by mouth daily, glucosamine sulfate 1,000 mg Capsule Directions: 1 capsule oral daily every morning and at bedtime
--- OUTSIDE RECORDS SUMMARY | 2017-04-15 11:30 | External Medical Summary ---
:1930 Author Organization [id number]. Summary purpose CCDA Sent to [facility] Chief Complaint and Reason for Visit Admit Diagnosis 1 UTI Problem list No authorized problems tracked for [...] Drug neomycin Active [facility] Active (alozwunf-xzutox-GA) (frzvbqju-iyesre-QE) [facility] Drug hydrocortisone Active (dhlfyadv-mklgxe-BM) [facility] Drug neomycin Active (kkjmcwcz-dobxjl-XS) [facility] Drug polymyxin B Active (onossydo-uiqjce-ZN) Immunizations Status Date Not Given Product Series # Effectiveness / Lead Qa Analyst Lot / Reason Reaction Expiration Given DIPH,PERTU [...]
--- OUTSIDE RECORDS SUMMARY | 2017-04-15 11:30 | External Medical Summary | Summary of Care ---
:1930 Author Name Faina Linn M.D. Address [address] [place] [address] Care Team Providers Name Role Phone Bryan [...]
--- OUTSIDE RECORDS SUMMARY | 2017-04-15 11:30 | External Medical Summary | Summary of Care ---
:1930 Author Name Faina Linn M.D. Address [address] [facility] [place] [address] Care Team Providers Name Role Phone Bryan Oliver D.O. Unavailable Unavailable Faina Linn M.D. 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 Refills: 0 Started 16-Aug-2012 ActiveCarvedilol 3.125 MG Oral Tablet Take 1 tablet twice daily Quantity: 60 Refills: 5 Faina Linn M.D. Started 16-Aug-2012 ActiveAspirin 81 MG TABS TAKE [...] smoker Vital Signs Date Test Result Details 13:57 BP Systolic 112 mm[Hg] Status: BP Diastolic 62 mm[Hg] Status: Heart Rate 68 /min Status: Height 66 in Status: Weight 169 lb Status: Body Mass Index Calculated 27.28 kg/m2 Status: Body Surface Area Calculated 1.86 m2 Status: 18-Sep-2015 14:23 BP Systolic 122 mm[Hg] Status: [...] Planned Encounters Appointment; Provider: Faina Linn On 01-Jan-2015 14:30 Appointment; Provider: Schedule Radiology On 07-Dec-2014 09:00 Instructions Instructions not documented Encounters Appointment; Faina Linn On Encounter Diagnosis: Problem not documented 13:45 Appointment; Faina Linn On 18-Sep-2015 Encounter Diagnosis: Problem not documented 14:15 Appointment; Faina Linn On 03-Apr-2015 Encounter Diagnosis: Problem not documented 14:30 Appointment; Faina Linn On 25-Dec-2014 Encounter Diagnosis: Problem not documented 11:30 Appointment; Faina Linn On Encounter Diagnosis: Problem not documented 09:30 Appointment; Faina Linn On Encounter Diagnosis: Problem not documented 10:15
[2017-04-15] MEDS ORDERED: SALINE FLUSH 10ml SYRINGE IV PRN (14:51)
[2017-04-15] MEDS ORDERED: QUETIAPINE 25 MG TABLET PO SCH (15:00)
[2017-04-15 15:08] VITALS: BMI 29.0
[2017-04-15] MEDS ORDERED: HALOPERIDOL 5 MG/ML INJECTION IM PRN (15:47)
[2017-04-15] MEDS ORDERED: HALOPERIDOL 0.5 MG TABLET PO PRN (15:47)
[2017-04-15] MEDS: IBUPROFEN 200 MG TABLET PO SCH (17:47)
--- NOTE | 2017-04-15 17:57 | History & Physical Report ---
History of Present Illness Date: 04/15/17 Chief complaint: dementia with hallucinations and aggression HPI: Patient is an 86-year-old male admitted [facility] from [facility] in [place] for dementia with hallucinations and aggression. He was previously in [facility] for 7 days, originally admitted (and ruled out) for chest pain, but had increased confusion, agitation and aggressive behaviors.He has had problems with restlessness and combativeness in the day and the night. He was changed from Seroquel to Risperdal during his stay. He is currently on Depakote 250 mg twice a day. While hospitalized, he had an episode of hypotension and decreased responsiveness, but this was corrected with IV fluids. He had a Sams placed as he had not voided for greater than 12 hours. He does have a history of urinary retention. He is on Flomax. Patient has had a markedly cognitive and behavioral decline in 6 months or so. Had a recent fall and did have a negative CT of his head during hospitalization in [place]. Review of Systems All systems PM: 10-point ROS was reviewed, no additional remarkable complaints except (knee pain secondary to arthritis, hallucinations and agitation) PFSH Medical History Coronary artery disease-CABG 2003, [place] 1995 (heart cath 12/16 showing diffuse CAD) Vascular dementia Osteoarthritis Osteoporosis Hypercholesterolemia Hypertension Atrial fibrillation CHF CVA-2005 Type 2 diabetes-diet controlled Diabetic neuropathy BPH with history of urinary retention Parkinson's disease Depression Surgical History: Appendectomy 1975, CABG 07/05 (Dr. Matute), right total knee replacement 01/16, carpal tunnel release 02/16, cardiac catheter 07/05 (Dr. Matute) multivessel CAD, EF 30% Family History: Father- at age 81 from an [place]. First [place] age 64. 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 Veronica Schafer Mutual Funds Agent-Dr. Linn Blocker And Polisher Gold Wheel -Dr. Carvalho Orthopedist -Dr. Guidry Medications Home Medications Medication Instructions Recorded Confirmed Type Acetaminophen 325 - 650 mg PO Q4H PRN 04/15/17 04/15/17 History Aspirin 1 tab PO DAILY 04/15/17 04/15/17 History Carbidopa/Levodopa 1 tab PO TID 04/15/17 04/15/17 History [Carbidopa-Levodopa 25-100 Tab] Divalproex [Depakote] 1 tab PO BID 04/15/17 04/15/17 History Docusate Sodium [Colace] 1 cap PO DAILY 04/15/17 04/15/17 History Ibuprofen 200 mg PO 09,1730 04/15/17 04/15/17 History Lisinopril [Prinivil] 10 mg PO DAILY 04/15/17 04/15/17 History Lovastatin [Mevacor] 20 mg PO HS 04/15/17 04/15/17 History Omeprazole [Prilosec] 1 cap PO ACB 04/15/17 04/15/17 History RisperiDONE [RisperDAL] 0.5 mg PO DAILY 04/15/17 04/15/17 History RisperiDONE [RisperDAL] 1 mg PO HS 04/15/17 04/15/17 History Sertraline HCl [Zoloft] 25 mg PO DAILY 04/15/17 04/15/17 History Tamsulosin [Flomax] 0.4 mg PO HS 04/15/17 04/15/17 History Allergies Allergy/AdvReac Type Severity Reaction Status Date / Time bacitracin Allergy Verified 04/15/17 13:55 [From Neosporin ([id number])] clopidogrel [From Plavix] Allergy Verified 04/15/17 13:55 neomycin Allergy Verified 04/15/17 13:55 [From Neosporin ([id number])] polymyxin B Allergy Verified 04/15/17 13:55 [From Neosporin ([id number])] lorazepam [From Ativan] AdvReac Verified 04/15/17 12:53 Exam Vital Signs: Temperature 97.1 F 04/15/17 15:49 Pulse Rate 74 04/15/17 16:30 Respiratory Rate 16 04/15/17 16:30 Blood Pressure 136/75 04/15/17 15:49 Pulse Oximetry 98 04/15/17 16:30 Height/Weight/BMI: Height 1.6 m Weight 74.3 kg Body Mass Index 29.0 - Constitutional Present: no acute distress, well nourished, well developed - Routine HEENT Exam Head: Present: normocephalic Eye: Present: EOMI ENT: Present: mucous membranes moist Comments: Healing wound on upper left forehead with Steri-Strips present. Bruising is present - Routine Neck Exam Present: supple. Absent: lymphadenopathy, thyromegaly - Routine Respiratory Exam Present: CTA bilaterally. Absent: wheezes - Routine Cardiovascular Exam Present: RRR, murmur (grade 2) - Routine Abdominal Exam Present: soft, normoactive bowel sounds, non distended. Absent: tenderness - Routine Extremities Exam Present: no edema, normal capillary refill - Routine Skin Exam Present: dry, warm - Routine Neurological Exam Present: alert, CN II-XII intact, moving all extremities, normal speech. Absent : oriented X3 (patient is oriented to self. He does state we are in [place], however says we are at [facility]. States it is May.), pronator drift, facial asymmetry - Routine Psychiatric Exam Present: normal affect, cooperative Results - Labs Labs: 04/15/17 labs performed at [facility] WBC 7.0 hemoglobin 12.7 hematocrit 37, platelet 130 BMP normal except potassium 3.4, BUN 35, creatinine 1.08, glucose 125 - Imaging and Cardiology CT scan - head Additional comments: Performed 04/13/17 at [facility] in [place] No evidence of intra-cranial bleed Assessment and Plan Assessment and Plan: Impression Vascular dementia - with hallucinations and agitation Coronary artery disease-CABG 2003, [place] 1995 (heart cath 12/16 showing diffuse CAD) Osteoarthritis Osteoporosis Hypercholesterolemia Hypertension Atrial fibrillation CHF CVA-2005 Type 2 diabetes-diet controlled Diabetic neuropathy BPH with history of urinary retention Parkinson's disease Depression Closed right eighth rib fracture (? Acute versus chronic) Plan Agree with admission to [facility] for further evaluation and treatment by psychiatry and to provide a safe environment Patient does have diabetes, but has opted against tight control of blood sugars. Patient is not on any diabetic medications. Will not require Accu- Cheks during his stay less needed. As he is not eating well he may have a normal diet. Will leave Hep-Lock and Sams in place for now if patient is not bothered by them. Follow I&O's. Check daily weights. Care to return to Dr. Schafer upon dismissal Hospitalist team will continue to manage patient medically throughout his stay. Thank you for the consult. - Physician Narriative Physician: Yenni Lambert MD Narriative: 04/15/17 19:52 I have independently evaluated and examined this patient. I reviewed the chart, the patient's history, and the TIRE VULCANIZER/PA's documented findings as above. We discussed and formulated the assessment and plan as above with additions as below: Mr. Perkins transferred from outside facility with increased behavioral abnormalities. He fell recently sustaining a laceration above the left eye. Head CT was reported as negative. The patient reports he only had one bad fall and his only concern time of my evaluation was of the Asms catheter. He denied pain of any type including headaches and reported no chest pain or dyspnea. He was able to confirm history of a slight heart attack a couple years ago and having "slight" diabetes but denies history of stroke. Examination reveals laceration on the left forehead closed with Steri-Strips. The patient has very subtle right ptosis and flattening of the right nasolabial fold. Extraocular muscles are intact, tongue is midline. Respirations are nonlabored with good airflow. I believe cardiac rhythm is regular however the patient was talking continually. Sensation is intact to touch 4 extremities, no tremor appreciated at time of my evaluation. 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 Blood sugars recent days reported to run from 125-196, Accu-Cheks will be monitored initially and corrected scale insulin available if needed. Creatinine bumped to 2.2 on 04/14 when hypotension was also described and patient received IV fluids; creatinine was improved at 1.08 earlier today before patient transferred to [facility]. It appears Sams catheter was placed around 04/14 although this is somewhat unclear. Records indicate the patient's daughter is his DPOA and has considered comfort care if symptoms cannot stabilize with medical management. DO NOT RESUSCITATE previously established. Hospital Course Summary Disclaimer: The visit summary below is not to be considered part of the above Progress Note. Hospital Course: Impression Vascular dementia - with hallucinations and agitation Coronary artery disease-CABG 2003, [place] 1995 (heart cath 12/16 showing diffuse CAD) Osteoarthritis Osteoporosis Hypercholesterolemia Hypertension Atrial fibrillation CHF CVA-2005 Type 2 diabetes-diet controlled Diabetic neuropathy BPH with history of urinary retention Parkinson's disease Depression Closed right eighth rib fracture (? Acute versus chronic) 04/15/17-Hospitalist consult Agree with admission to [facility] for further evaluation and treatment by psychiatry and to provide a safe environment Patient does have diabetes, but has opted against tight control of blood sugars. Patient is not on any diabetic medications. Will not require Accu- Cheks during his stay less needed. As he is not eating well he may have a normal diet. Will leave Hep-Lock and Sams in place for now if patient is not bothered by them. Follow I&O's. Check daily weights. Care to return to Dr. Schafer upon dismissal Hospitalist team will continue to manage patient medically throughout his stay. Thank you for the consult.
[2017-04-15] MEDS: DIVALPROEX 250 MG TABLET PO SCH (21:05)
[2017-04-15] MEDS: TAMSULOSIN 0.4 MG CAPSULE PO SCH (21:05)
[2017-04-15] MEDS: LOVASTATIN 20 MG TABLET PO SCH (21:05)
[2017-04-15] MEDS: RisperiDONE 1 MG TABLET PO SCH (21:05)
[2017-04-16] MEDS: ASPIRIN 81 MG CHEWABLE TABLET PO SCH (09:35)
[2017-04-16] MEDS: DIVALPROEX 250 MG TABLET PO SCH (09:35)
[2017-04-16] MEDS: OMEPRAZOLE 20 MG CAPSULE PO SCH (09:35)
[2017-04-16] MEDS: RisperiDONE 0.5 MG TABLET PO SCH (09:36)
[2017-04-16] MEDS: LISINOPRIL 10 MG TABLET PO SCH (09:36)
[2017-04-16] MEDS: IBUPROFEN 200 MG TABLET PO SCH ×2 (09:36→17:21)
[2017-04-16] MEDS: DOCUSATE SODIUM 100 MG CAPSULE PO SCH (09:36)
[2017-04-16] MEDS: SERTRALINE 25 MG TABLET PO SCH (09:36)
--- NOTE | 2017-04-16 10:56 | Progress Note ---
Progress Note: Patient's chart reviewed. He did not sleep much last night and did have some prn Risperdal overnight. We'll check his labs today. Blood pressures have been slightly elevated. He is on lisinopril 10 daily. We'll continue to follow, may need to increase dosage.
[2017-04-16] MEDS: INSULIN ASPART 100unit/ml INJECTION SQ PRN ×2 (11:52→21:36)
[2017-04-16] MEDS: LOVASTATIN 20 MG TABLET PO SCH ×2 (19:46→22:23)
[2017-04-16] MEDS: DIVALPROEX SPRINKLE 125 MG CAPSULE PO SCH ×2 (19:46→22:23)
[2017-04-16] MEDS: RisperiDONE 1 MG TABLET PO SCH ×2 (19:47→22:24)
[2017-04-16] MEDS: TAMSULOSIN 0.4 MG CAPSULE PO SCH ×2 (19:47→22:24)
--- NOTE | 2017-04-16 21:50 | 24 Hour Neuropsychiatic Eval ---
Date of Admission: 04/15/17 11:21 Chief complaint: Agitation, VH History of Present Illness: Patient is as 86-year-old male who was admitted to [facility] on 04/15/17 from [facility] in [place], [place], as staff there reported agitation/aggression and VH. Per hospitalist: "He was previously in [facility] for 7 days, originally admitted (and ruled out) for chest pain, but had increased confusion, agitation and aggressive behaviors.He has had problems with restlessness and combativeness in the day and the night. He was changed from Seroquel to Risperdal during his stay. He is currently on Depakote 250 mg twice a day. While hospitalized, he had an episode of hypotension and decreased responsiveness, but this was corrected with IV fluids. He had a Sams placed as he had not voided for greater than 12 hours. He does have a history of urinary retention. He is on Flomax. Patient has had a markedly cognitive and behavioral decline in 6 months or so. Had a recent fall and did have a negative CT of his head during hospitalization in [place]." On interview, patient is pleasantly confused. He is more focused on eating and he mumbles to the extent that his answers are quite difficult for me to understand. He does start talking about a soldier coming by last night, which is completely unrelated to my interview question. [facility] Patient Stated Medical History Cerebrovascular Accident Yes: 04/2006 Dementia Yes Parkinson's Disease Yes Syncope Yes Hearing Loss Yes Angina Yes Congestive Heart Failure Yes Coronary Artery Disease Yes Hypertension Yes Myocardial Infarction Yes: 1995 Other Cardiology A-fib Hx Benign Prostatic Yes Hyperplasia Osteoarthritis Yes Surgical History: Appendectomy 1975, CABG 07/05 (Dr. Matute), right total knee replacement 01/16, carpal tunnel release 02/16, cardiac catheter 07/05 (Dr. Matute) multivessel CAD, EF 30% Family History Updates: Unable to obtain family hx of mintal illness from patient. 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 Current residence: [place] Social history: Strengths: pleasant with staff, able to communicate verbally though mumbled, has family support Review of Systems ROS unobtainable: due to mental status Mental Status Exam Vitals: Last Vital Signs Temp 97.3 F 04/16/17 21:30 Pulse 81 04/16/17 21:30 Resp 20 04/16/17 21:30 BP 109/67 04/16/17 21:30 Pulse Ox 98 04/16/17 21:30 Height: 1.6 m Weight: 74.2 kg - Mental Status Exam Muscle Strength/Tone: Normal Dressing: Casual Grooming: Fair Attitude: Cooperative Motor Activity: Normal Eye Contact: Other (Limited) Speech: Slowed Volume: Normal Rhythm: Mumbled Sensory: Alert Orientation: Disoriented to time, Disoriented to place, Disoriented to situation , Oriented to person Mood: Neutral Affect: Relaxed (during interview) Rate of Thoughts: Delayed Thought Organization: Confused Associations: Illogical Abstract Reasoning: Impaired, concrete Thought Content: Other (No abnormal thought content elicted other than being out of context to situation) Perception/Psychotic: Psychotic Current Hallucinations: Visual Language: Naming Impaired Fund of Knowledge: Poor fund of knowledge Memory: Poor-immediate, Poor-recent Suicidal Ideation: Denies Homicidal Ideation: Denies Insight: Impaired Judgement: Impaired Impulse Control: Other (Limited) - Laboratory Result Diagrams: 04/16/17 13:33 04/16/17 13:33 Laboratory Results - last 24 hr 04/15/17 04/16/17 04/16/17 23:03 06:01 11:42 WBC RBC Hgb Hct MCV MCH MCHC RDW Std Deviation Plt Count MPV Immature Gran % (Auto) Neut % (Auto) Lymph % (Auto) [place] % (Auto) Eos % (Auto) Baso % (Auto) Neut # (Auto) Lymph # (Auto) [place] # (Auto) Eos # (Auto) Baso # (Auto) Abs Immat Gran (auto) Turbidity Sodium Potassium Chloride Carbon Dioxide Anion Gap BUN Creatinine GFR Calculation BUN/Creatinine Ratio Glucose Glucometer 164 157 247 Calculated Osmolality Calcium Icterus Index Specimen Hemolysis 04/16/17 04/16/17 04/16/17 13:33 13:33 14:31 WBC 9.2 RBC 4.30 L Hgb 13.4 L Hct 39.7 L MCV 92.3 MCH 31.2 MCHC 33.8 RDW Std Deviation 44.6 Plt Count 171 MPV 9.8 Immature Gran % (Auto) 0.3 Neut % (Auto) 75.0 H Lymph % (Auto) 14.7 L [place] % (Auto) 8.3 Eos % (Auto) 1.4 Baso % (Auto) 0.3 Neut # (Auto) 6.9 Lymph # (Auto) 1.4 [place] # (Auto) 0.8 Eos # (Auto) 0.1 Baso # (Auto) 0.0 Abs Immat Gran (auto) 0.03 Turbidity < 20 Sodium 142 Potassium 3.6 Chloride 103 Carbon Dioxide 25 Anion Gap 14 BUN 26.0 H Creatinine 1.0 GFR Calculation 71 BUN/Creatinine Ratio 26 Glucose 156 H Glucometer 159 Calculated Osmolality 281 H Calcium 9.5 Icterus Index < 2 Specimen Hemolysis < 15 04/16/17 21:20 WBC RBC Hgb Hct MCV MCH MCHC RDW Std Deviation Plt Count MPV Immature Gran % (Auto) Neut % (Auto) Lymph % (Auto) [place] % (Auto) Eos % (Auto) Baso % (Auto) Neut # (Auto) Lymph # (Auto) [place] # (Auto) Eos # (Auto) Baso # (Auto) Abs Immat Gran (auto) Turbidity Sodium Potassium Chloride Carbon Dioxide Anion Gap BUN Creatinine GFR Calculation BUN/Creatinine Ratio Glucose Glucometer 212 Calculated Osmolality Calcium Icterus Index Specimen Hemolysis Assessment and Plan (1) Major neurocognitive disorder Problem details: vascular, moderate to severe, with behavioral disturbance Current visit: Yes Status: Acute (2) CAD (coronary artery disease) Current visit: Yes Status: Acute (3) Hypertension Current visit: Yes Status: Acute (4) Atrial fibrillation Current visit: Yes Status: Acute (5) CHF (congestive heart failure) Current visit: Yes Status: Acute (6) History of CVA (cerebrovascular accident) Current visit: Yes Status: Acute (7) Type 2 diabetes mellitus Current visit: Yes Status: Acute (8) BPH (benign prostatic hyperplasia) Current visit: Yes Status: Acute (9) Parkinson disease Current visit: Yes Status: Acute (10) Hypercholesteremia Current visit: Yes Status: Acute (11) Osteoarthritis Current visit: Yes Status: Acute Admit to [facility] for evaluation and stabilization. Maintain safety and elopement precautions. Will order/review the following: CBC, CMP, TSH, UA, Vitamin B12 and folate. CT of head recently completed. Will contact family and LTC facility for more collateral information. Have consulted hospitalist for optimization of medical comorbidities. Will continue home medications for the time being to monitor behavior. Monitor mood, behavior and response to treatment.
--- NOTE | 2017-04-17 09:08 | Neuropsych Progress Note ---
[facility] Subjective Date: 04/17/17 - Sujective/Severity of Illness Medications: Acetaminophen (Tylenol) 325 mg PO Q4H PRN PRN Reason: Pain Aspirin (Asa) 81 mg PO DAILY [facility] Last Admin: 04/16/17 09:35 Dose: 81 mg Carbidopa/Levodopa (Sinemet) 1 tab PO [facility] Divalproex Sodium (Depakote Sprinkle) 250 mg PO BID [facility] Last Admin: 04/16/17 22:23 Dose: Not Given Docusate Sodium (Colace) 100 mg PO DAILY [facility] Last Admin: 04/16/17 09:36 Dose: 100 mg Haloperidol Lactate (Haldol) 0.5 mg IM Q6H PRN PRN Reason: Extreme agitation Ibuprofen (Motrin) 200 mg PO [facility] Last Admin: 04/16/17 17:21 Dose: 200 mg Insulin Aspart (Novolog) 2 - 5 unit SQ SS PRN; Protocol PRN Reason: Hyperglycemia Last Admin: 04/16/17 21:36 Dose: 2 unit Lisinopril (Prinivil) 10 mg PO DAILY [facility] Last Admin: 04/16/17 09:36 Dose: 10 mg Lovastatin (Mevacor) 20 mg PO HS [facility] Last Admin: 04/16/17 22:23 Dose: Not Given Omeprazole (Prilosec) 20 mg PO ACB [facility] Last Admin: 04/16/17 09:35 Dose: 20 mg Risperidone (Risperdal) 0.5 mg PO DAILY [facility] Last Admin: 04/16/17 09:36 Dose: 0.5 mg Risperidone (Risperdal) 1 mg PO HS [facility] Last Admin: 04/16/17 22:24 Dose: Not Given Risperidone (Risperdal) 0.25 mg PO Q6HR PRN PRN Reason: Agitation Last Admin: 04/15/17 23:20 Dose: 0.25 mg Sertraline HCl (Zoloft) 25 mg PO DAILY [facility] Last Admin: 04/16/17 09:36 Dose: 25 mg Sodium Chloride (Iv Flush) 10 ml IV PRN PRN PRN Reason: Flushing Tamsulosin HCl (Flomax) 0.4 mg PO HS [facility] Last Admin: 04/16/17 22:24 Dose: Not Given Subjective: Patient seen and chart reviewed. Case discussed with treatment team. Patient is sleeping at time of rounds. MSE below based in part on my last interaction with him. Nursing staff report patient continues to have VH but has otherwise been cooperative, without significant behavioral difficulties on the unit. He has been adherent with medications. Patient did not sleep hardly at all his first night on the unit. However, he slept 8.5 hours overnight last night. VSS. Patient is eating well. Psychotropic PRNs required in the past 24 hours: none. Start Time: 07:20 Stop Time: 07:40 Mental Status Exam Vitals: Last Vital Signs Temp 97.3 F 04/16/17 21:30 Pulse 81 04/16/17 21:30 Resp 20 04/16/17 21:30 BP 109/67 04/16/17 21:30 Pulse Ox 98 04/16/17 21:30 Height: 1.6 m Weight: 74.2 kg - Mental Status Exam Muscle Strength/Tone: Normal Dressing: Casual Grooming: Fair Attitude: Cooperative Motor Activity: Normal Eye Contact: Other (Limited) Speech: Slowed Volume: Normal Rhythm: Mumbled Orientation: Disoriented to time, Disoriented to place, Disoriented to situation , Oriented to person Mood: Neutral Rate of Thoughts: Delayed Thought Organization: Confused Associations: Illogical Abstract Reasoning: Impaired, concrete Thought Content: Other (No abnormal thought content elicted other than being out of context to situation) Perception/Psychotic: Psychotic Current Hallucinations: Visual Language: Naming Impaired Fund of Knowledge: Poor fund of knowledge Memory: Poor-immediate, Poor-recent Suicidal Ideation: Denies Homicidal Ideation: Denies Insight: Impaired Judgement: Impaired Impulse Control: Other (Limited) - Laboratory Result Diagrams: 04/16/17 13:33 04/16/17 13:33 Laboratory Results - last 24 hr 04/16/17 04/16/17 04/16/17 11:42 13:33 13:33 WBC 9.2 RBC 4.30 L Hgb 13.4 L Hct 39.7 L MCV 92.3 MCH 31.2 MCHC 33.8 RDW Std Deviation 44.6 Plt Count 171 MPV 9.8 Immature Gran % (Auto) 0.3 Neut % (Auto) 75.0 H Lymph % (Auto) 14.7 L [place] % (Auto) 8.3 Eos % (Auto) 1.4 Baso % (Auto) 0.3 Neut # (Auto) 6.9 Lymph # (Auto) 1.4 [place] # (Auto) 0.8 Eos # (Auto) 0.1 Baso # (Auto) 0.0 Abs Immat Gran (auto) 0.03 Turbidity < 20 Sodium 142 Potassium 3.6 Chloride 103 Carbon Dioxide 25 Anion Gap 14 BUN 26.0 H Creatinine 1.0 GFR Calculation 71 BUN/Creatinine Ratio 26 Glucose 156 H Glucometer 247 Calculated Osmolality 281 H Calcium 9.5 Icterus Index < 2 Specimen Hemolysis < 15 04/16/17 04/16/17 14:31 21:20 WBC RBC Hgb Hct MCV MCH MCHC RDW Std Deviation Plt Count MPV Immature Gran % (Auto) Neut % (Auto) Lymph % (Auto) [place] % (Auto) Eos % (Auto) Baso % (Auto) Neut # (Auto) Lymph # (Auto) [place] # (Auto) Eos # (Auto) Baso # (Auto) Abs Immat Gran (auto) Turbidity Sodium Potassium Chloride Carbon Dioxide Anion Gap BUN Creatinine GFR Calculation BUN/Creatinine Ratio Glucose Glucometer 159 212 Calculated Osmolality Calcium Icterus Index Specimen Hemolysis Assessment and Plan (1) Major neurocognitive disorder Problem details: vascular, moderate to severe, with behavioral disturbance Current visit: Yes Status: Acute (2) CAD (coronary artery disease) Current visit: Yes Status: Acute (3) Hypertension Current visit: Yes Status: Acute (4) Atrial fibrillation Current visit: Yes Status: Acute (5) CHF (congestive heart failure) Current visit: Yes Status: Acute (6) History of CVA (cerebrovascular accident) Current visit: Yes Status: Acute (7) Type 2 diabetes mellitus Current visit: Yes Status: Acute (8) BPH (benign prostatic hyperplasia) Current visit: Yes Status: Acute (9) Parkinson disease Current visit: Yes Status: Acute (10) Hypercholesteremia Current visit: Yes Status: Acute (11) Osteoarthritis Current visit: Yes Status: Acute 04/17/17 Psych: Decreased Sinemet to BID at 0800, 1400 in the event that it could be causing/contributing to VH. Monitor behavior/response in the evening. Additionally held lovastatin due to patient's age, severity of his dementia and in the event that it could be interfering with his sleep. Hospital Course Summary Disclaimer: The visit summary below is not to be considered part of the above Progress Note. Hospital Course: Impression Vascular dementia - with hallucinations and agitation Coronary artery disease-CABG 2003, [place] 1995 (heart cath 12/16 showing diffuse CAD) Osteoarthritis Osteoporosis Hypercholesterolemia Hypertension Atrial fibrillation CHF CVA-2005 Type 2 diabetes-diet controlled Diabetic neuropathy BPH with history of urinary retention Parkinson's disease Depression Closed right eighth rib fracture (? Acute versus chronic) 04/15/17-Hospitalist consult Agree with admission to [facility] for further evaluation and treatment by psychiatry and to provide a safe environment Patient does have diabetes, but has opted against tight control of blood sugars. Patient is not on any diabetic medications. Will not require Accu- Cheks during his stay less needed. As he is not eating well he may have a normal diet. Will leave Hep-Lock and Sams in place for now if patient is not bothered by them. Follow I&O's. Check daily weights. Care to return to Dr. Schafer upon dismissal Hospitalist team will continue to manage patient medically throughout his stay. Thank you for the consult. 04/16/17 Psych: Continued home medications to observe behavior/response. 04/17/17 Psych: Decreased Sinemet to BID at 0800, 1400 in the event that it could be causing/contributing to VH. Monitor behavior/response in the evening. Additionally held lovastatin due to patient's age, severity of his dementia and in the event that it could be interfering with his sleep.
[2017-04-17] MEDS: DIVALPROEX SPRINKLE 125 MG CAPSULE PO SCH ×2 (11:50→20:30)
[2017-04-17] MEDS: IBUPROFEN 200 MG TABLET PO SCH ×2 (11:51→17:24)
[2017-04-17] MEDS: LISINOPRIL 10 MG TABLET PO SCH (11:52)
[2017-04-17] MEDS: RisperiDONE 0.5 MG TABLET PO SCH (11:52)
[2017-04-17] MEDS: DOCUSATE SODIUM 100 MG CAPSULE PO SCH (11:52)
[2017-04-17] MEDS: OMEPRAZOLE 20 MG CAPSULE PO SCH (11:52)
[2017-04-17] MEDS: SERTRALINE 25 MG TABLET PO SCH (11:52)
[2017-04-17] MEDS: ASPIRIN 81 MG CHEWABLE TABLET PO SCH (11:52)
[2017-04-17] MEDS: RisperiDONE 1 MG TABLET PO SCH (20:31)
[2017-04-17] MEDS: TAMSULOSIN 0.4 MG CAPSULE PO SCH (20:31)
[2017-04-18] MEDS: OMEPRAZOLE 20 MG CAPSULE PO SCH (06:05)
[2017-04-18] MEDS: ACETAMINOPHEN 325 MG TABLET PO PRN ×2 (06:05→16:20)
[2017-04-18] MEDS: RisperiDONE 0.5 MG TABLET PO SCH (10:43)
[2017-04-18] MEDS: LISINOPRIL 10 MG TABLET PO SCH (10:43)
[2017-04-18] MEDS: IBUPROFEN 200 MG TABLET PO SCH ×2 (10:43→16:55)
[2017-04-18] MEDS: ASPIRIN 81 MG CHEWABLE TABLET PO SCH (10:43)
[2017-04-18] MEDS: DIVALPROEX SPRINKLE 125 MG CAPSULE PO SCH ×2 (10:43→20:01)
[2017-04-18] MEDS: SERTRALINE 25 MG TABLET PO SCH (10:44)
[2017-04-18] MEDS: DOCUSATE SODIUM 100 MG CAPSULE PO SCH (10:44)
--- NOTE | 2017-04-18 17:38 | Neuropsych Progress Note ---
[facility] Subjective Date: 04/18/17 - Sujective/Severity of Illness Medications: Acetaminophen (Tylenol) 325 mg PO Q4H PRN PRN Reason: Pain Last Admin: 04/18/17 16:20 Dose: 325 mg Aspirin (Asa) 81 mg PO DAILY [facility] Last Admin: 04/18/17 10:43 Dose: 81 mg Carbidopa/Levodopa (Sinemet) 1 tab PO ,14 [facility] Last Admin: 04/18/17 15:21 Dose: 1 tab Divalproex Sodium (Depakote Sprinkle) 250 mg PO BID [facility] Last Admin: 04/18/17 10:43 Dose: 250 mg Docusate Sodium (Colace) 100 mg PO DAILY [facility] Last Admin: 04/18/17 10:44 Dose: 100 mg Haloperidol Lactate (Haldol) 0.5 mg IM Q6H PRN PRN Reason: Extreme agitation Ibuprofen (Motrin) 200 mg PO 1730 [facility] Last Admin: 04/18/17 16:55 Dose: 200 mg Insulin Aspart (Novolog) 2 - 5 unit SQ SS PRN; Protocol PRN Reason: Hyperglycemia Last Admin: 04/16/17 21:36 Dose: 2 unit Insulin Glargine (Lantus) 8 unit SQ HS [facility] Lisinopril (Prinivil) 10 mg PO DAILY [facility] Last Admin: 04/18/17 10:43 Dose: 10 mg Lovastatin (Mevacor) 20 mg PO HS [facility] Last Admin: 04/16/17 22:23 Dose: Not Given Omeprazole (Prilosec) 20 mg PO ACB [facility] Last Admin: 04/18/17 06:05 Dose: 20 mg Risperidone (Risperdal) 0.5 mg PO DAILY [facility] Last Admin: 04/18/17 10:43 Dose: 0.5 mg Risperidone (Risperdal) 1 mg PO HS [facility] Last Admin: 04/17/17 20:31 Dose: 1 mg Risperidone (Risperdal) 0.25 mg PO Q6HR PRN PRN Reason: Agitation Last Admin: 04/18/17 15:55 Dose: 0.25 mg Sertraline HCl (Zoloft) 25 mg PO DAILY [facility] Last Admin: 04/18/17 10:44 Dose: 25 mg Sodium Chloride (Iv Flush) 10 ml IV PRN PRN PRN Reason: Flushing Tamsulosin HCl (Flomax) 0.4 mg PO HS [facility] Last Admin: 04/17/17 20:31 Dose: 0.4 mg Subjective: Patient seen and chart reviewed. Nursing reports pt has been complaining of some knee pain but is otherwise doing well. On face to face the pt states he is doing well. He does report some knee pain but voices no other concerns. He is only oriented to self. Voices no other concerns at this time Start Time: 10:30 Stop Time: 10:45 Mental Status Exam Vitals: Last Vital Signs Temp 98.9 F 04/18/17 16:40 Pulse 68 04/18/17 16:40 Resp 18 04/18/17 16:40 BP 119/63 04/18/17 16:40 Pulse Ox 96 04/18/17 16:40 Height: 1.6 m Weight: 74.4 kg - Mental Status Exam Muscle Strength/Tone: Normal Dressing: Casual Grooming: Fair Attitude: Cooperative Motor Activity: Normal Eye Contact: Other (Limited) Speech: Slowed Volume: Normal Rhythm: Mumbled Orientation: Disoriented to time, Disoriented to place, Disoriented to situation , Oriented to person Mood: Neutral Rate of Thoughts: Delayed Thought Organization: Confused Associations: Illogical Abstract Reasoning: Impaired, concrete Thought Content: Other (No abnormal thought content elicted other than being out of context to situation) Perception/Psychotic: Psychotic Current Hallucinations: Visual Language: Naming Impaired Fund of Knowledge: Poor fund of knowledge Memory: Poor-immediate, Poor-recent Suicidal Ideation: Denies Homicidal Ideation: Denies Insight: Impaired Judgement: Impaired Impulse Control: Other (Limited) - Laboratory Result Diagrams: 04/16/17 13:33 04/16/17 13:33 Laboratory Results - last 24 hr 04/17/17 04/18/17 04/18/17 20:43 06:05 10:06 Glucometer 224 173 160 04/18/17 14:28 Glucometer 165 Assessment and Plan (1) Major neurocognitive disorder Problem details: vascular, moderate to severe, with behavioral disturbance Current visit: Yes Status: Acute (2) CAD (coronary artery disease) Current visit: Yes Status: Acute (3) Hypertension Current visit: Yes Status: Acute (4) Atrial fibrillation Current visit: Yes Status: Acute (5) CHF (congestive heart failure) Current visit: Yes Status: Acute (6) History of CVA (cerebrovascular accident) Current visit: Yes Status: Acute (7) Type 2 diabetes mellitus Current visit: Yes Status: Acute (8) BPH (benign prostatic hyperplasia) Current visit: Yes Status: Acute (9) Parkinson disease Current visit: Yes Status: Acute (10) Hypercholesteremia Current visit: Yes Status: Acute (11) Osteoarthritis Current visit: Yes Status: Acute Hospital Course Summary Disclaimer: The visit summary below is not to be considered part of the above Progress Note. 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 Acute versus chronic) 04/15/17-Hospitalist consult Agree with admission to [facility] for further evaluation and treatment by psychiatry and to provide a safe environment Patient does have diabetes, but has opted against tight control of blood sugars. Patient is not on any diabetic medications. Will not require Accu- Cheks during his stay less needed. As he is not eating well he may have a normal diet. Will leave Hep-Lock and Sams in place for now if patient is not bothered by them. Follow I&O's. Check daily weights. Care to return to Dr. Schafer upon dismissal Hospitalist team will continue to manage patient medically throughout his stay. Thank you for the consult. 04/16/17 Psych: Continued home medications to observe behavior/response. 04/17/17 Psych: Decreased Sinemet to BID at 0800, 1400 in the event that it could be causing/contributing to VH. Monitor behavior/response in the evening. Additionally held lovastatin due to patient's age, severity of his dementia and in the event that it could be interfering with his sleep. 04/18/17 17:37 Pt is doing a little better. Continue current care
[2017-04-18] MEDS: TAMSULOSIN 0.4 MG CAPSULE PO SCH (20:01)
[2017-04-18] MEDS: RisperiDONE 1 MG TABLET PO SCH (20:03)
[2017-04-18] MEDS: INSULIN GLARGINE 100unit/ml INJECTION SQ SCH (21:10)
--- NOTE | 2017-04-19 11:20 | Neuropsych Progress Note ---
[facility] Subjective Date: 04/19/17 - Sujective/Severity of Illness Medications: Acetaminophen (Tylenol) 325 mg PO Q4H PRN PRN Reason: Pain Last Admin: 04/18/17 16:20 Dose: 325 mg Aspirin (Asa) 81 mg PO DAILY [facility] Last Admin: 04/18/17 10:43 Dose: 81 mg Carbidopa/Levodopa (Sinemet) 1 tab PO 08,14 [facility] Last Admin: 04/18/17 15:21 Dose: 1 tab Divalproex Sodium (Depakote Sprinkle) 250 mg PO BID [facility] Last Admin: 04/18/17 20:01 Dose: 250 mg Docusate Sodium (Colace) 100 mg PO DAILY [facility] Last Admin: 04/18/17 10:44 Dose: 100 mg Haloperidol Lactate (Haldol) 0.5 mg IM Q6H PRN PRN Reason: Extreme agitation Ibuprofen (Motrin) 200 mg PO [id number] [facility] Last Admin: 04/18/17 16:55 Dose: 200 mg Insulin Aspart (Novolog) 2 - 5 unit SQ SS PRN; Protocol PRN Reason: Hyperglycemia Last Admin: 04/16/17 21:36 Dose: 2 unit Insulin Glargine (Lantus) 8 unit SQ HS [facility] Last Admin: 04/18/17 21:10 Dose: 8 unit Lisinopril (Prinivil) 10 mg PO DAILY [facility] Last Admin: 04/18/17 10:43 Dose: 10 mg Lovastatin (Mevacor) 20 mg PO HS [facility] Last Admin: 04/16/17 22:23 Dose: Not Given Omeprazole (Prilosec) 20 mg PO ACB [facility] Last Admin: 04/18/17 06:05 Dose: 20 mg Risperidone (Risperdal) 0.5 mg PO DAILY [facility] Last Admin: 04/18/17 10:43 Dose: 0.5 mg Risperidone (Risperdal) 1 mg PO HS [facility] Last Admin: 04/18/17 20:03 Dose: 1 mg Risperidone (Risperdal) 0.25 mg PO Q6HR PRN PRN Reason: Agitation Last Admin: 04/18/17 15:55 Dose: 0.25 mg Sertraline HCl (Zoloft) 25 mg PO DAILY [facility] Last Admin: 04/18/17 10:44 Dose: 25 mg Sodium Chloride (Iv Flush) 10 ml IV PRN PRN PRN Reason: Flushing Tamsulosin HCl (Flomax) 0.4 mg PO HS [facility] Last Admin: 04/18/17 20:01 Dose: 0.4 mg Subjective: Patient seen and chart reviewed. Nursing reports pt is doing well. Has some issues with sleep and is restless at night. has VH worse in the evening but these do not seem to be concerning to the pt. On face to face the pt is resting quietly. He voices no concerns. Tolerating meds Start Time: 10:30 Stop Time: 10:45 Mental Status Exam Vitals: Last Vital Signs Temp 97.5 F 04/18/17 21:29 Pulse 76 04/18/17 21:29 Resp 18 04/18/17 16:40 BP 129/64 04/18/17 21:29 Pulse Ox 24 L 04/18/17 21:29 Height: 1.6 m Weight: 75.5 kg - Mental Status Exam Muscle Strength/Tone: Normal Dressing: Casual Grooming: Fair Attitude: Cooperative Motor Activity: Normal Eye Contact: Other (Limited) Speech: Slowed Volume: Normal Rhythm: Mumbled Orientation: Disoriented to time, Disoriented to place, Disoriented to situation , Oriented to person Mood: Neutral Rate of Thoughts: Delayed Thought Organization: Confused Associations: Illogical Abstract Reasoning: Impaired, concrete Thought Content: Other (No abnormal thought content elicted other than being out of context to situation) Perception/Psychotic: Psychotic Current Hallucinations: Visual Language: Naming Impaired Fund of Knowledge: Poor fund of knowledge Memory: Poor-immediate, Poor-recent Suicidal Ideation: Denies Homicidal Ideation: Denies Insight: Impaired Judgement: Impaired Impulse Control: Other (Limited) - Laboratory Result Diagrams: 04/16/17 13:33 04/16/17 13:33 Laboratory Results - last 24 hr 04/18/17 04/19/17 04/19/17 14:28 06:04 07:01 Glucometer 165 137 Hemoglobin A1c 6.1 H Assessment and Plan (1) Major neurocognitive disorder Problem details: vascular, moderate to severe, with behavioral disturbance Current visit: Yes Status: Acute (2) CAD (coronary artery disease) Current visit: Yes Status: Acute (3) Hypertension Current visit: Yes Status: Acute (4) Atrial fibrillation Current visit: Yes Status: Acute (5) CHF (congestive heart failure) Current visit: Yes Status: Acute (6) History of CVA (cerebrovascular accident) Current visit: Yes Status: Acute (7) Type 2 diabetes mellitus Current visit: Yes Status: Acute (8) BPH (benign prostatic hyperplasia) Current visit: Yes Status: Acute (9) Parkinson disease Current visit: Yes Status: Acute (10) Hypercholesteremia Current visit: Yes Status: Acute (11) Osteoarthritis Current visit: Yes Status: Acute Hospital Course Summary Disclaimer: The visit summary below is not to be considered part of the above Progress Note. 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 Acute versus chronic) 04/15/17-Hospitalist consult Agree with admission to [facility] for further evaluation and treatment by psychiatry and to provide a safe environment Patient does have diabetes, but has opted against tight control of blood sugars. Patient is not on any diabetic medications. Will not require Accu- Cheks during his stay less needed. As he is not eating well he may have a normal diet. Will leave Hep-Lock and Sams in place for now if patient is not bothered by them. Follow I&O's. Check daily weights. Care to return to Dr. Schafer upon dismissal Hospitalist team will continue to manage patient medically throughout his stay. Thank you for the consult. 04/16/17 Psych: Continued home medications to observe behavior/response. 04/17/17 Psych: Decreased Sinemet to BID at 0800, 1400 in the event that it could be causing/contributing to VH. Monitor behavior/response in the evening. Additionally held lovastatin due to patient's age, severity of his dementia and in the event that it could be interfering with his sleep. 04/18/17 17:37 Pt is doing a little better. Continue current care 04/19/17 11:19 Pt is doing well. Continue current care
[2017-04-19] MEDS: OMEPRAZOLE 20 MG CAPSULE PO SCH (12:19)
[2017-04-19] MEDS: DOCUSATE SODIUM 100 MG CAPSULE PO SCH (12:20)
[2017-04-19] MEDS: ASPIRIN 81 MG CHEWABLE TABLET PO SCH (12:20)
[2017-04-19] MEDS: IBUPROFEN 200 MG TABLET PO SCH ×2 (12:20→17:03)
[2017-04-19] MEDS: DIVALPROEX SPRINKLE 125 MG CAPSULE PO SCH ×3 (12:20→21:20)
[2017-04-19] MEDS: LISINOPRIL 10 MG TABLET PO SCH (12:20)
[2017-04-19] MEDS: RisperiDONE 0.5 MG TABLET PO SCH (12:20)
[2017-04-19] MEDS: SERTRALINE 25 MG TABLET PO SCH (12:20)
[2017-04-19] MEDS: INSULIN ASPART 100unit/ml INJECTION SQ PRN (17:05)
[2017-04-19] MEDS: RisperiDONE 1 MG TABLET PO SCH ×2 (19:24→21:22)
[2017-04-19] MEDS: TAMSULOSIN 0.4 MG CAPSULE PO SCH ×2 (19:25→21:22)
[2017-04-19] MEDS: INSULIN GLARGINE 100unit/ml INJECTION SQ SCH (22:34)
[2017-04-20] MEDS ORDERED: BISACODYL 10 MG SUPPOSITORY RECTALLY PRN (10:19)
--- NOTE | 2017-04-20 12:01 | Progress Note ---
- Date 04/20/17 Subjective: Beena was resting in bed with his eyes open. He told me, "I pooped". He did not answer other questions, But during evaluation, he told me "don't push on my tummy". Staff report that he was given a suppository this morning. Overall, he has been alert and oriented 2, pleasant and cooperative. He has had good oral intake. He ambulates with a front-wheeled walker and requires heavy assistance. Objective Vital signs: Temperature 97.6 F 04/19/17 21:32 Pulse Rate 91 04/19/17 21:32 Respiratory Rate 22 04/19/17 21:32 Blood Pressure 118/65 04/19/17 21:32 Pulse Oximetry 97 04/19/17 21:32 Height/Weight/BMI: Height 1.6 m Weight 74.5 kg Body Mass Index 29.0 - Constitutional Present: no acute distress, well nourished, well developed, thin - Routine HEENT Exam Head: Present: normocephalic Eye: Absent: conjunctival icterus ENT: Present: mucous membranes dry (lips are dry) - Routine Respiratory Exam Present: CTA bilaterally - Routine Cardiovascular Exam Present: RRR, S1, S2, murmur ( ) - Routine Abdominal Exam Present: normoactive bowel sounds. 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 Acute versus chronic) Plan Suppository given this am for constipation Sams was inserted on admission for urinary retention. Start bladder retraining , in hopes of DC Sams in the next couple of days. Accuchecks range from 137-220s, most are under 180. PO intake is variable. VS stable. Psychiatric progress note reviewed. - Physician Narrative Narrative: Date: 04/20/17 Time: 1157 Hospital Course Summary Disclaimer: The visit summary below is not to be considered part of the above Progress Note. 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 Acute versus chronic) 04/15/17-Hospitalist consult Agree with admission to [facility] for further evaluation and treatment by psychiatry and to provide a safe environment Patient does have diabetes, but has opted against tight control of blood sugars. Patient is not on any diabetic medications. Will not require Accu- Cheks during his stay less needed. As he is not eating well he may have a normal diet. Will leave Hep-Lock and Sams in place for now if patient is not bothered by them. Follow I&O's. Check daily weights. Care to return to Dr. Schafer upon dismissal Hospitalist team will continue to manage patient medically throughout his stay. Thank you for the consult. 04/16/17 Psych: Continued home medications to observe behavior/response. 04/17/17 Psych: Decreased Sinemet to BID at 0800, 1400 in the event that it could be causing/contributing to VH. Monitor behavior/response in the evening. Additionally held lovastatin due to patient's age, severity of his dementia and in the event that it could be interfering with his sleep. 04/18/17 17:37 Pt is doing a little better. Continue current care 04/19/17 11:19 Pt is doing well. Continue current care 04/20/17 Suppository given this am for constipation Sams was inserted on admission for urinary retention. Start bladder retraining , in hopes of DC Sams in the next couple of days. Accuchecks range from 137-220s, most are under 180. PO intake is variable.
[2017-04-20] MEDS: OMEPRAZOLE 20 MG CAPSULE PO SCH (12:30)
[2017-04-20] MEDS: DOCUSATE SODIUM 100 MG CAPSULE PO SCH (12:31)
[2017-04-20] MEDS: DIVALPROEX SPRINKLE 125 MG CAPSULE PO SCH ×2 (12:31→20:03)
[2017-04-20] MEDS: SERTRALINE 25 MG TABLET PO SCH (12:31)
[2017-04-20] MEDS: LISINOPRIL 10 MG TABLET PO SCH (12:31)
[2017-04-20] MEDS: RisperiDONE 0.5 MG TABLET PO SCH (12:31)
[2017-04-20] MEDS: ASPIRIN 81 MG CHEWABLE TABLET PO SCH (12:31)
[2017-04-20] MEDS: IBUPROFEN 200 MG TABLET PO SCH ×2 (12:37→17:25)
[2017-04-20] MEDS: ACETAMINOPHEN 325 MG TABLET PO PRN (13:55)
[2017-04-20] MEDS: INSULIN ASPART 100unit/ml INJECTION SQ PRN (15:15)
--- NOTE | 2017-04-20 16:51 | Neuropsych Progress Note ---
[facility] Subjective Date: 04/20/17 - Sujective/Severity of Illness Medications: Acetaminophen (Tylenol) 325 mg PO Q4H PRN PRN Reason: Pain Last Admin: 04/20/17 13:55 Dose: 325 mg Aspirin (Asa) 81 mg PO DAILY [facility] Last Admin: 04/20/17 12:31 Dose: 81 mg Bisacodyl (Dulcolax) 10 mg RECTALLY DAILY PRN PRN Reason: Constipation Last Admin: 04/20/17 10:21 Dose: 10 mg Carbidopa/Levodopa (Sinemet) 1 tab PO ,14 [facility] Last Admin: 04/20/17 15:01 Dose: 1 tab Divalproex Sodium (Depakote Sprinkle) 250 mg PO BID [facility] Last Admin: 04/20/17 12:31 Dose: 250 mg Docusate Sodium (Colace) 100 mg PO DAILY [facility] Last Admin: 04/20/17 12:31 Dose: 100 mg Haloperidol Lactate (Haldol) 0.5 mg IM Q6H PRN PRN Reason: Extreme agitation Ibuprofen (Motrin) 200 mg PO [facility] Last Admin: 04/20/17 12:37 Dose: 200 mg Insulin Aspart (Novolog) 2 - 5 unit SQ SS PRN; Protocol PRN Reason: Hyperglycemia Last Admin: 04/20/17 15:15 Dose: 2 unit Insulin Glargine (Lantus) 8 unit SQ HS [facility] Last Admin: 04/19/17 22:34 Dose: Not Given Lisinopril (Prinivil) 10 mg PO DAILY [facility] Last Admin: 04/20/17 12:31 Dose: 10 mg Lovastatin (Mevacor) 20 mg PO HS [facility] Last Admin: 04/16/17 22:23 Dose: Not Given Magnesium Hydroxide (Mom) 30 ml PO DAILY PRN PRN Reason: Constipation Omeprazole (Prilosec) 20 mg PO ACB [facility] Last Admin: 04/20/17 12:30 Dose: 20 mg Risperidone (Risperdal) 0.5 mg PO DAILY [facility] Last Admin: 04/20/17 12:31 Dose: 0.5 mg Risperidone (Risperdal) 1 mg PO HS [facility] Last Admin: 04/19/17 21:22 Dose: Not Given Risperidone (Risperdal) 0.25 mg PO Q6HR PRN PRN Reason: Agitation Last Admin: 04/18/17 15:55 Dose: 0.25 mg Sertraline HCl (Zoloft) 25 mg PO DAILY [facility] Last Admin: 04/20/17 12:31 Dose: 25 mg Sodium Chloride (Iv Flush) 10 ml IV PRN PRN PRN Reason: Flushing Tamsulosin HCl (Flomax) 0.4 mg PO HS [facility] Last Admin: 04/19/17 21:22 Dose: Not Given Subjective: Patient seen and chart reviewed. Case discussed with treatment team. Patient is sleeping at time of rounds. Nursing staff report patient has been more cooperative, engaged overall and has been adherent with medications. He does ask repetitive questions and in the late afternoons gets a bit more anxious about leaving, where his truck is, etc. He was able to recognize his daughter over the weekend, which he could not on admission. Patient slept 7.5 hours overnight. VSS. Patient is eating well. Psychotropic PRNs required in the past 24 hours: none. Start Time: 10:20 Stop Time: 10:40 Mental Status Exam Vitals: Last Vital Signs Temp 97.3 F 04/20/17 16:00 Pulse 86 04/20/17 16:00 Resp 18 04/20/17 16:00 BP 115/69 04/20/17 16:00 Pulse Ox 98 04/20/17 16:00 Height: 1.6 m Weight: 74.5 kg - Mental Status Exam Muscle Strength/Tone: Normal Dressing: Casual Grooming: Fair Attitude: Cooperative Motor Activity: Normal Eye Contact: Other (Limited) Speech: Slowed Volume: Normal Rhythm: Mumbled Orientation: Disoriented to time, Disoriented to place, Disoriented to situation , Oriented to person Mood: Neutral Rate of Thoughts: Delayed Thought Organization: Confused Associations: Illogical Abstract Reasoning: Impaired, concrete Thought Content: Other (No abnormal thought content elicted other than being out of context to situation) Perception/Psychotic: Psychotic Current Hallucinations: Visual Language: Naming Impaired Fund of Knowledge: Poor fund of knowledge Memory: Poor-immediate, Poor-recent Suicidal Ideation: Denies Homicidal Ideation: Denies Insight: Impaired Judgement: Impaired Impulse Control: Other (Limited) - Laboratory Result Diagrams: 04/16/17 13:33 04/16/17 13:33 Laboratory Results - last 24 hr 04/19/17 04/19/17 04/19/17 11:43 15:32 21:06 Glucometer 145 221 190 04/20/17 04/20/17 04/20/17 06:43 12:09 14:57 Glucometer 168 160 225 Assessment and Plan (1) Major neurocognitive disorder Problem details: vascular, moderate to severe, with behavioral disturbance Current visit: Yes Status: Acute (2) CAD (coronary artery disease) Current visit: Yes Status: Acute (3) Hypertension Current visit: Yes Status: Acute (4) Atrial fibrillation Current visit: Yes Status: Acute (5) CHF (congestive heart failure) Current visit: Yes Status: Acute (6) History of CVA (cerebrovascular accident) Current visit: Yes Status: Acute (7) Type 2 diabetes mellitus Current visit: Yes Status: Acute (8) BPH (benign prostatic hyperplasia) Current visit: Yes Status: Acute (9) Parkinson disease Current visit: Yes Status: Acute (10) Hypercholesteremia Current visit: Yes Status: Acute (11) Osteoarthritis Current visit: Yes Status: Acute Will move HS Risperdal dose to 1600 to try to minimize sundowning. Monitor mood , behavior, response to treatment. Hospital Course Summary Disclaimer: The visit summary below is not to be considered part of the above Progress Note. 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 Acute versus chronic) 04/15/17-Hospitalist consult Agree with admission to [facility] for further evaluation and treatment by psychiatry and to provide a safe environment Patient does have diabetes, but has opted against tight control of blood sugars. Patient is not on any diabetic medications. Will not require Accu- Cheks during his stay less needed. As he is not eating well he may have a normal diet. Will leave Hep-Lock and Sams in place for now if patient is not bothered by them. Follow I&O's. Check daily weights. Care to return to Dr. Schafer upon dismissal Hospitalist team will continue to manage patient medically throughout his stay. Thank you for the consult. 04/16/17 Psych: Continued home medications to observe behavior/response. 12/15/17 Psych: Decreased Sinemet to BID at 0800, 1400 in the event that it could be causing/contributing to VH. Monitor behavior/response in the evening. Additionally held lovastatin due to patient's age, severity of his dementia and in the event that it could be interfering with his sleep. 04/18/17 17:37 Pt is doing a little better. Continue current care 04/19/17 11:19 Pt is doing well. Continue current care 04/20/17 Suppository given this am for constipation Sams was inserted on admission for urinary retention. Start bladder retraining , in hopes of DC Sams in the next couple of days. Accuchecks range from 137-220s, most are under 180. PO intake is variable. 04/20/17 Psych: Will move HS Risperdal dose to 1600 to try to minimize sundowning. Monitor mood, behavior, response to treatment.
[2017-04-20] MEDS ORDERED: RisperiDONE 1 MG TABLET PO ONE (17:31)
[2017-04-20] MEDS: TAMSULOSIN 0.4 MG CAPSULE PO SCH (20:04)
[2017-04-20] MEDS: INSULIN GLARGINE 100unit/ml INJECTION SQ SCH (20:05)
[2017-04-21] MEDS: OMEPRAZOLE 20 MG CAPSULE PO SCH (06:35)
[2017-04-21] MEDS: SERTRALINE 25 MG TABLET PO SCH (09:40)
[2017-04-21] MEDS: ASPIRIN 81 MG CHEWABLE TABLET PO SCH (09:40)
[2017-04-21] MEDS: LISINOPRIL 10 MG TABLET PO SCH (09:40)
[2017-04-21] MEDS: DIVALPROEX SPRINKLE 125 MG CAPSULE PO SCH ×2 (09:40→20:11)
[2017-04-21] MEDS: DOCUSATE SODIUM 100 MG CAPSULE PO SCH (09:40)
[2017-04-21] MEDS: IBUPROFEN 200 MG TABLET PO SCH ×2 (09:40→17:15)
[2017-04-21] MEDS: RisperiDONE 0.5 MG TABLET PO SCH (09:41)
[2017-04-21] MEDS: RisperiDONE 1 MG TABLET PO SCH (16:19)
[2017-04-21] MEDS: INSULIN GLARGINE 100unit/ml INJECTION SQ SCH (20:11)
[2017-04-21] MEDS: TAMSULOSIN 0.4 MG CAPSULE PO SCH (20:11)
--- NOTE | 2017-04-21 20:23 | Neuropsych Progress Note ---
[facility] Subjective Date: 04/22/17 - Sujective/Severity of Illness Medications: Acetaminophen (Tylenol) 325 mg PO Q4H PRN PRN Reason: Pain Last Admin: 04/20/17 13:55 Dose: 325 mg Aspirin (Asa) 81 mg PO DAILY [facility] Last Admin: 04/21/17 09:40 Dose: 81 mg Bisacodyl (Dulcolax) 10 mg RECTALLY DAILY PRN PRN Reason: Constipation Last Admin: 04/20/17 10:21 Dose: 10 mg Carbidopa/Levodopa (Sinemet) 1 tab PO ,14 [facility] Last Admin: 04/21/17 16:19 Dose: 1 tab Divalproex Sodium (Depakote Sprinkle) 250 mg PO BID [facility] Last Admin: 04/21/17 20:11 Dose: 250 mg Docusate Sodium (Colace) 100 mg PO DAILY [facility] Last Admin: 04/21/17 09:40 Dose: 100 mg Haloperidol Lactate (Haldol) 0.5 mg IM Q6H PRN PRN Reason: Extreme agitation Ibuprofen (Motrin) 200 mg PO [facility] Last Admin: 04/21/17 17:15 Dose: 200 mg Insulin Aspart (Novolog) 2 - 5 unit SQ SS PRN; Protocol PRN Reason: Hyperglycemia Last Admin: 04/20/17 15:15 Dose: 2 unit Insulin Glargine (Lantus) 8 unit SQ HS [facility] Last Admin: 04/21/17 20:11 Dose: 8 unit Lisinopril (Prinivil) 10 mg PO DAILY [facility] Last Admin: 04/21/17 09:40 Dose: 10 mg Lovastatin (Mevacor) 20 mg PO HS [facility] Last Admin: 04/16/17 22:23 Dose: Not Given Magnesium Hydroxide (Mom) 30 ml PO DAILY PRN PRN Reason: Constipation Omeprazole (Prilosec) 20 mg PO ACB [facility] Last Admin: 04/21/17 06:35 Dose: 20 mg Risperidone (Risperdal) 0.5 mg PO DAILY [facility] Last Admin: 04/21/17 09:41 Dose: 0.5 mg Risperidone (Risperdal) 0.25 mg PO Q6HR PRN PRN Reason: Agitation Last Admin: 04/18/17 15:55 Dose: 0.25 mg Risperidone (Risperdal) 1 mg PO 16 [facility] Last Admin: 04/21/17 16:19 Dose: 1 mg Sertraline HCl (Zoloft) 25 mg PO DAILY [facility] Last Admin: 04/21/17 09:40 Dose: 25 mg Sodium Chloride (Iv Flush) 10 ml IV PRN PRN PRN Reason: Flushing Tamsulosin HCl (Flomax) 0.4 mg PO HS [facility] Last Admin: 04/21/17 20:11 Dose: 0.4 mg Subjective: Patient seen and chart reviewed. Case discussed with treatment team. Patient is pleasant though confused during interview. He reports his mood is good and complains of mild aches "here and there" but nothing persistent. Nursing staff report patient has been more cooperative, engaged overall and has been adherent with medications. He does ask repetitive questions and in the late afternoons gets a bit more anxious about leaving, where his truck is, etc. He was able to recognize his daughter over the weekend, which he could not on admission. Patient slept well overnight. VSS. Patient is eating well. Psychotropic PRNs required in the past 24 hours: none. Start Time: 09:20 Stop Time: 09:40 Mental Status Exam Vitals: Last Vital Signs Temp 97.3 F 04/21/17 15:58 Pulse 69 04/21/17 15:58 Resp 16 04/21/17 15:58 BP 104/58 04/21/17 15:58 Pulse Ox 98 04/21/17 15:58 Height: 1.6 m Weight: 74.5 kg - Mental Status Exam Muscle Strength/Tone: Normal Dressing: Casual Grooming: Fair Attitude: Cooperative Motor Activity: Normal Eye Contact: Fair Speech: Slowed Volume: Normal Rhythm: Mumbled Orientation: Disoriented to time, Disoriented to place, Disoriented to situation , Oriented to person Mood: Euthymic Affect: Relaxed (becomes more anxious later in the day) Rate of Thoughts: Delayed Thought Organization: Confused Associations: Illogical Abstract Reasoning: Impaired, concrete Thought Content: Somatic Concerns (mild), Other (can become quite repetititve when anxious) Perception/Psychotic: Hx psychosis, not current Language: Naming Impaired Fund of Knowledge: Poor fund of knowledge Memory: Poor-immediate, Poor-recent Suicidal Ideation: Denies Homicidal Ideation: Denies Insight: Impaired Judgement: Impaired Impulse Control: Fair - Laboratory Result Diagrams: 04/16/17 13:33 04/16/17 13:33 Laboratory Results - last 24 hr 04/20/17 04/21/17 04/21/17 19:58 06:44 06:44 Glucometer 172 150 Triglycerides 114 Cholesterol 165 LDL Cholesterol, Calc 109.2 VLDL Cholesterol 22.8 HDL Cholesterol 33 L Cholesterol/HDL Ratio 5.0 04/21/17 04/21/17 04/21/17 11:01 14:00 20:02 Glucometer 195 192 175 Triglycerides Cholesterol LDL Cholesterol, Calc VLDL Cholesterol HDL Cholesterol Cholesterol/HDL Ratio Assessment and Plan (1) Major neurocognitive disorder Problem details: vascular, moderate to severe, with behavioral disturbance Current visit: Yes Status: Acute (2) CAD (coronary artery disease) Current visit: Yes Status: Acute (3) Hypertension Current visit: Yes Status: Acute (4) Atrial fibrillation Current visit: Yes Status: Acute (5) CHF (congestive heart failure) Current visit: Yes Status: Acute (6) History of CVA (cerebrovascular accident) Current visit: Yes Status: Acute (7) Type 2 diabetes mellitus Current visit: Yes Status: Acute (8) BPH (benign prostatic hyperplasia) Current visit: Yes Status: Acute (9) Parkinson disease Current visit: Yes Status: Acute (10) Hypercholesteremia Current visit: Yes Status: Acute (11) Osteoarthritis Current visit: Yes Status: Acute Patient improving but still has anxiety/agitation, restlessness with repetitive questioning earlier in evenings. Will change timing of Risperdal to 1800 and monitor response. Hospital Course Summary Disclaimer: The visit summary below is not to be considered part of the above Progress Note. 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 Acute versus chronic) 04/15/17-Hospitalist consult Agree with admission to [facility] for further evaluation and treatment by psychiatry and to provide a safe environment Patient does have diabetes, but has opted against tight control of blood sugars. Patient is not on any diabetic medications. Will not require Accu- Cheks during his stay less needed. As he is not eating well he may have a normal diet. Will leave Hep-Lock and Sams in place for now if patient is not bothered by them. Follow I&O's. Check daily weights. Care to return to Dr. Schafer upon dismissal Hospitalist team will continue to manage patient medically throughout his stay. Thank you for the consult. 04/16/17 Psych: Continued home medications to observe behavior/response. 04/17/17 Psych: Decreased Sinemet to BID at 0800, 1400 in the event that it could be causing/contributing to VH. Monitor behavior/response in the evening. Additionally held lovastatin due to patient's age, severity of his dementia and in the event that it could be interfering with his sleep. 04/18/17 17:37 Pt is doing a little better. Continue current care 04/19/17 11:19 Pt is doing well. Continue current care 04/20/17 Suppository given this am for constipation Sams was inserted on admission for urinary retention. Start bladder retraining , in hopes of DC Sams in the next couple of days. Accuchecks range from 137-220s, most are under 180. PO intake is variable. 04/20/17 Psych: Will move HS Risperdal dose to 1600 to try to minimize sundowning. Monitor mood, behavior, response to treatment. 04/21/17 Psych: Patient improving but still has anxiety/agitation, restlessness with repetitive questioning earlier in evenings. Will change timing of Risperdal to 1800 and monitor response.
[2017-04-22] MEDS: OMEPRAZOLE 20 MG CAPSULE PO SCH ×2 (06:16→09:26)
[2017-04-22] MEDS: ASPIRIN 81 MG CHEWABLE TABLET PO SCH (09:26)
[2017-04-22] MEDS: DIVALPROEX SPRINKLE 125 MG CAPSULE PO SCH ×2 (09:26→19:45)
[2017-04-22] MEDS: DOCUSATE SODIUM 100 MG CAPSULE PO SCH (09:27)
[2017-04-22] MEDS: RisperiDONE 0.5 MG TABLET PO SCH (09:27)
[2017-04-22] MEDS: IBUPROFEN 200 MG TABLET PO SCH ×2 (09:27→17:18)
[2017-04-22] MEDS: LISINOPRIL 10 MG TABLET PO SCH (09:27)
[2017-04-22] MEDS: SERTRALINE 25 MG TABLET PO SCH (09:27)
[2017-04-22] MEDS: INSULIN ASPART 100unit/ml INJECTION SQ PRN (14:22)
[2017-04-22] MEDS: RisperiDONE 1 MG TABLET PO SCH (15:11)
--- NOTE | 2017-04-22 18:03 | Neuropsych Progress Note ---
[facility] Subjective Date: 04/22/17 - Sujective/Severity of Illness Medications: Acetaminophen (Tylenol) 325 mg PO Q4H PRN PRN Reason: Pain Last Admin: 04/20/17 13:55 Dose: 325 mg Aspirin (Asa) 81 mg PO DAILY [facility] Last Admin: 04/22/17 09:26 Dose: 81 mg Bisacodyl (Dulcolax) 10 mg RECTALLY DAILY PRN PRN Reason: Constipation Last Admin: 04/20/17 10:21 Dose: 10 mg Carbidopa/Levodopa (Sinemet) 1 tab PO 14 [facility] Last Admin: 04/22/17 15:11 Dose: 1 tab Divalproex Sodium (Depakote Sprinkle) 250 mg PO BID [facility] Last Admin: 04/22/17 09:26 Dose: 250 mg Docusate Sodium (Colace) 100 mg PO DAILY [facility] Last Admin: 04/22/17 09:27 Dose: 100 mg Haloperidol Lactate (Haldol) 0.5 mg IM Q6H PRN PRN Reason: Extreme agitation Ibuprofen (Motrin) 200 mg PO [facility] Last Admin: 04/22/17 17:18 Dose: 200 mg Insulin Aspart (Novolog) 2 - 5 unit SQ SS PRN; Protocol PRN Reason: Hyperglycemia Last Admin: 04/22/17 14:22 Dose: 2 unit Insulin Glargine (Lantus) 8 unit SQ HS [facility] Last Admin: 04/21/17 20:11 Dose: 8 unit Lisinopril (Prinivil) 10 mg PO DAILY [facility] Last Admin: 04/22/17 09:27 Dose: 10 mg Lovastatin (Mevacor) 20 mg PO HS [facility] Last Admin: 04/16/17 22:23 Dose: Not Given Magnesium Hydroxide (Mom) 30 ml PO DAILY PRN PRN Reason: Constipation Omeprazole (Prilosec) 20 mg PO ACB [facility] Last Admin: 04/22/17 09:26 Dose: 20 mg Risperidone (Risperdal) 0.5 mg PO DAILY [facility] Last Admin: 04/22/17 09:27 Dose: 0.5 mg Risperidone (Risperdal) 0.25 mg PO Q6HR PRN PRN Reason: Agitation Last Admin: 04/18/17 15:55 Dose: 0.25 mg Risperidone (Risperdal) 1 mg PO 16 [facility] Last Admin: 04/22/17 15:11 Dose: 1 mg Sertraline HCl (Zoloft) 25 mg PO DAILY [facility] Last Admin: 04/22/17 09:27 Dose: 25 mg Sodium Chloride (Iv Flush) 10 ml IV PRN PRN PRN Reason: Flushing Tamsulosin HCl (Flomax) 0.4 mg PO HS [facility] Last Admin: 04/21/17 20:11 Dose: 0.4 mg Subjective: Patient seen and chart reviewed. Case discussed with treatment team. Patient is pleasant though confused during interview. He reports his mood is good and complains of mild hip pain but is willing to try Tylenol, a heating pad , etc. Nursing staff report patient has been more cooperative, engaged overall and has been adherent with medications. He has been less repetitive and was more easily reassured last evening after changing timing of Risperdal. Patient slept well overnight. VSS. Patient is eating well. Psychotropic PRNs required in the past 24 hours: none. Start Time: 11:20 Stop Time: 11:40 Mental Status Exam Vitals: Last Vital Signs Temp 97.3 F 04/22/17 16:00 Pulse 79 04/22/17 16:00 Resp 18 04/22/17 16:00 BP 111/67 04/22/17 16:00 Pulse Ox 95 04/22/17 16:00 Height: 1.6 m Weight: 74.5 kg - Mental Status Exam Muscle Strength/Tone: Normal Dressing: Casual Grooming: Fair Attitude: Cooperative Motor Activity: Normal Eye Contact: Fair Speech: Slowed Volume: Normal Rhythm: Mumbled Orientation: Disoriented to time, Disoriented to place, Disoriented to situation , Oriented to person Mood: Euthymic Rate of Thoughts: Delayed Thought Organization: Confused Associations: Illogical Abstract Reasoning: Impaired, concrete Thought Content: Somatic Concerns (mild), Other (can become quite repetititve when anxious) Perception/Psychotic: Hx psychosis, not current Current Hallucinations: Visual Language: Naming Impaired Fund of Knowledge: Poor fund of knowledge Memory: Poor-immediate, Poor-recent Suicidal Ideation: Denies Homicidal Ideation: Denies Insight: Impaired Judgement: Impaired Impulse Control: Fair - Laboratory Result Diagrams: 04/16/17 13:33 04/16/17 13:33 Laboratory Results - last 24 hr 04/21/17 04/21/17 04/22/17 14:00 20:02 11:26 Glucometer 192 175 178 Assessment and Plan (1) Major neurocognitive disorder Problem details: vascular, moderate to severe, with behavioral disturbance Current visit: Yes Status: Acute (2) CAD (coronary artery disease) Current visit: Yes Status: Acute (3) Hypertension Current visit: Yes Status: Acute (4) Atrial fibrillation Current visit: Yes Status: Acute (5) CHF (congestive heart failure) Current visit: Yes Status: Acute (6) History of CVA (cerebrovascular accident) Current visit: Yes Status: Acute (7) Type 2 diabetes mellitus Current visit: Yes Status: Acute (8) BPH (benign prostatic hyperplasia) Current visit: Yes Status: Acute (9) Parkinson disease Current visit: Yes Status: Acute (10) Hypercholesteremia Current visit: Yes Status: Acute (11) Osteoarthritis Current visit: Yes Status: Acute Continue current care - SW to discuss discharge planning with facility. Hospital Course Summary Disclaimer: The visit summary below is not to be considered part of the above Progress Note. 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 Acute versus chronic) 04/15/17-Hospitalist consult Agree with admission to [facility] for further evaluation and treatment by psychiatry and to provide a safe environment Patient does have diabetes, but has opted against tight control of blood sugars. Patient is not on any diabetic medications. Will not require Accu- Cheks during his stay less needed. As he is not eating well he may have a normal diet. Will leave Hep-Lock and Sams in place for now if patient is not bothered by them. Follow I&O's. Check daily weights. Care to return to Dr. Schafer upon dismissal Hospitalist team will continue to manage patient medically throughout his stay. Thank you for the consult. 04/16/17 Psych: Continued home medications to observe behavior/response. 04/17/17 Psych: Decreased Sinemet to BID at 0800, 1400 in the event that it could be causing/contributing to VH. Monitor behavior/response in the evening. Additionally held lovastatin due to patient's age, severity of his dementia and in the event that it could be interfering with his sleep. 04/18/17 17:37 Pt is doing a little better. Continue current care 04/19/17 11:19 Pt is doing well. Continue current care 04/20/17 Suppository given this am for constipation Sams was inserted on admission for urinary retention. Start bladder retraining , in hopes of DC Sams in the next couple of days. Accuchecks range from 137-220s, most are under 180. PO intake is variable. 04/20/17 Psych: Will move HS Risperdal dose to 1600 to try to minimize sundowning. Monitor mood, behavior, response to treatment. 04/21/17 Psych: Patient improving but still has anxiety/agitation, restlessness with repetitive questioning earlier in evenings. Will change timing of Risperdal to 1800 and monitor response. 04/22/17 Psych: Continue current care - SW to discuss discharge planning with facility.
[2017-04-22] MEDS: TAMSULOSIN 0.4 MG CAPSULE PO SCH (19:45)
[2017-04-22] MEDS: INSULIN GLARGINE 100unit/ml INJECTION SQ SCH (20:21)
[2017-04-23] MEDS: OMEPRAZOLE 20 MG CAPSULE PO SCH (06:10)
[2017-04-23] MEDS: DIVALPROEX SPRINKLE 125 MG CAPSULE PO SCH ×2 (08:14→20:11)
[2017-04-23] MEDS: DOCUSATE SODIUM 100 MG CAPSULE PO SCH (08:14)
[2017-04-23] MEDS: ASPIRIN 81 MG CHEWABLE TABLET PO SCH (08:14)
[2017-04-23] MEDS: IBUPROFEN 200 MG TABLET PO SCH ×2 (08:14→17:15)
[2017-04-23] MEDS: RisperiDONE 0.5 MG TABLET PO SCH (08:15)
[2017-04-23] MEDS: SERTRALINE 25 MG TABLET PO SCH (08:15)
[2017-04-23] MEDS: LISINOPRIL 10 MG TABLET PO SCH (08:15)
[2017-04-23 08:57] VITALS: RESP 16
[2017-04-23] MEDS: INSULIN ASPART 100unit/ml INJECTION SQ PRN (10:24)
--- NOTE | 2017-04-23 11:06 | Neuropsych Progress Note ---
[facility] Subjective Date: 04/24/17 - Sujective/Severity of Illness Medications: Acetaminophen (Tylenol) 325 mg PO Q4H PRN PRN Reason: Pain Last Admin: 04/20/17 13:55 Dose: 325 mg Aspirin (Asa) 81 mg PO DAILY [facility] Last Admin: 04/23/17 08:14 Dose: 81 mg Bisacodyl (Dulcolax) 10 mg RECTALLY DAILY PRN PRN Reason: Constipation Last Admin: 04/20/17 10:21 Dose: 10 mg Carbidopa/Levodopa (Sinemet) 1 tab PO [facility] Divalproex Sodium (Depakote Sprinkle) 250 mg PO BID [facility] Last Admin: 04/23/17 08:14 Dose: 250 mg Docusate Sodium (Colace) 100 mg PO DAILY [facility] Last Admin: 04/23/17 08:14 Dose: 100 mg Haloperidol Lactate (Haldol) 0.5 mg IM Q6H PRN PRN Reason: Extreme agitation Ibuprofen (Motrin) 200 mg PO 173 [facility] Last Admin: 04/23/17 08:14 Dose: 200 mg Insulin Aspart (Novolog) 2 - 5 unit SQ SS PRN; Protocol PRN Reason: Hyperglycemia Last Admin: 04/23/17 10:24 Dose: 2 unit Insulin Glargine (Lantus) 8 unit SQ HS [facility] Last Admin: 04/22/17 20:21 Dose: 8 unit Lisinopril (Prinivil) 10 mg PO DAILY [facility] Last Admin: 04/23/17 08:15 Dose: 10 mg Lovastatin (Mevacor) 20 mg PO HS [facility] Last Admin: 04/16/17 22:23 Dose: Not Given Magnesium Hydroxide (Mom) 30 ml PO DAILY PRN PRN Reason: Constipation Omeprazole (Prilosec) 20 mg PO ACB [facility] Last Admin: 04/23/17 06:10 Dose: 20 mg Risperidone (Risperdal) 0.5 mg PO DAILY [facility] Last Admin: 04/23/17 08:15 Dose: 0.5 mg Risperidone (Risperdal) 0.25 mg PO Q6HR PRN PRN Reason: Agitation Last Admin: 04/18/17 15:55 Dose: 0.25 mg Risperidone (Risperdal) 1 mg PO 16 [facility] Last Admin: 04/22/17 15:11 Dose: 1 mg Sertraline HCl (Zoloft) 25 mg PO DAILY [facility] Last Admin: 04/23/17 08:15 Dose: 25 mg Sodium Chloride (Iv Flush) 10 ml IV PRN PRN PRN Reason: Flushing Tamsulosin HCl (Flomax) 0.4 mg PO HS [facility] Last Admin: 04/22/17 19:45 Dose: 0.4 mg Subjective: Patient seen and chart reviewed. Case discussed with treatment team. Patient is pleasant though confused during interview. He reports his mood is good and he complains of mild pain. Nursing staff report patient has been more cooperative, engaged overall and has been adherent with medications. No sign of AVH. Patient slept well overnight. VSS. Patient is eating well. Psychotropic PRNs required in the past 24 hours: none. Start Time: 16:40 Stop Time: 17:00 Mental Status Exam Vitals: Last Vital Signs Temp 97.7 F 04/23/17 08:00 Pulse 76 04/23/17 08:00 Resp 16 04/23/17 08:00 BP 150/81 H 04/23/17 08:00 Pulse Ox 96 04/23/17 08:00 Height: 1.6 m Weight: 75 kg - Mental Status Exam Muscle Strength/Tone: Normal Dressing: Casual Grooming: Fair Attitude: Cooperative Motor Activity: Normal Eye Contact: Fair Speech: Slowed Volume: Normal Rhythm: Mumbled Orientation: Disoriented to time, Disoriented to place, Disoriented to situation , Oriented to person Mood: Euthymic Affect: Relaxed Rate of Thoughts: Delayed Thought Organization: Confused Associations: Illogical Abstract Reasoning: Impaired, concrete Thought Content: Somatic Concerns (mild) Perception/Psychotic: Hx psychosis, not current Current Hallucinations: Visual Language: Naming Impaired Fund of Knowledge: Poor fund of knowledge Memory: Poor-immediate, Poor-recent Suicidal Ideation: Denies Homicidal Ideation: Denies Insight: Impaired Judgement: Impaired Impulse Control: Good - Laboratory Result Diagrams: 04/16/17 13:33 04/16/17 13:33 Laboratory Results - last 24 hr 04/22/17 04/22/17 04/23/17 11:26 14:10 10:18 Glucometer 178 224 217 Assessment and Plan (1) Major neurocognitive disorder Problem details: vascular, moderate to severe, with behavioral disturbance Status: Acute (2) CAD (coronary artery disease) Status: Acute (3) Hypertension Status: Acute (4) Atrial fibrillation Status: Acute (5) CHF (congestive heart failure) Status: Acute (6) History of CVA (cerebrovascular accident) Status: Acute (7) Type 2 diabetes mellitus Status: Acute (8) BPH (benign prostatic hyperplasia) Status: Acute (9) Parkinson disease Status: Acute (10) Hypercholesteremia Status: Acute (11) Osteoarthritis Status: Acute Continue current care - will work towards finalizing discharge arrangements ( back to LTC facility). Hospital Course Summary Disclaimer: The visit summary below is not to be considered part of the above Progress Note. 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 Acute versus chronic) 04/15/17-Hospitalist consult Agree with admission to [facility] for further evaluation and treatment by psychiatry and to provide a safe environment Patient does have diabetes, but has opted against tight control of blood sugars. Patient is not on any diabetic medications. Will not require Accu- Cheks during his stay less needed. As he is not eating well he may have a normal diet. Will leave Hep-Lock and Sams in place for now if patient is not bothered by them. Follow I&O's. Check daily weights. Care to return to Dr. Schafer upon dismissal Hospitalist team will continue to manage patient medically throughout his stay. Thank you for the consult. 04/16/17 Psych: Continued home medications to observe behavior/response. 04/17/17 Psych: Decreased Sinemet to BID at 0800, 1400 in the event that it could be causing/contributing to VH. Monitor behavior/response in the evening. Additionally held lovastatin due to patient's age, severity of his dementia and in the event that it could be interfering with his sleep. 04/18/17 17:37 Pt is doing a little better. Continue current care 04/19/17 11:19 Pt is doing well. Continue current care 04/20/17 Suppository given this am for constipation Sams was inserted on admission for urinary retention. Start bladder retraining , in hopes of DC Sams in the next couple of days. Accuchecks range from 137-220s, most are under 180. PO intake is variable. 04/20/17 Psych: Will move HS Risperdal dose to 1600 to try to minimize sundowning. Monitor mood, behavior, response to treatment. 04/21/17 Psych: Patient improving but still has anxiety/agitation, restlessness with repetitive questioning earlier in evenings. Will change timing of Risperdal to 1800 and monitor response. 04/22/17 Psych: Continue current care - SW to discuss discharge planning with facility. 04/24/17 Psych: Continue current care - will work towards finalizing discharge arrangements (back to LTC facility).
[2017-04-23 16:30] VITALS: TEMP 97.8
[2017-04-23] MEDS: RisperiDONE 1 MG TABLET PO SCH (17:13)
[2017-04-23 19:56] VITALS: BP 106/64; PULSE 93; O2SAT 95
[2017-04-23] MEDS: TAMSULOSIN 0.4 MG CAPSULE PO SCH (20:11)
[2017-04-23] MEDS: INSULIN GLARGINE 100unit/ml INJECTION SQ SCH (20:12)
[2017-04-24] MEDS: SERTRALINE 25 MG TABLET PO SCH (09:13)
[2017-04-24] MEDS: LISINOPRIL 10 MG TABLET PO SCH (09:13)
[2017-04-24] MEDS: IBUPROFEN 200 MG TABLET PO SCH (09:14)
[2017-04-24] MEDS: DOCUSATE SODIUM 100 MG CAPSULE PO SCH (09:14)
[2017-04-24] MEDS: ASPIRIN 81 MG CHEWABLE TABLET PO SCH (09:14)
[2017-04-24] MEDS: DIVALPROEX SPRINKLE 125 MG CAPSULE PO SCH ×2 (09:14→09:27)
[2017-04-24] MEDS: RisperiDONE 0.5 MG TABLET PO SCH (09:14)
[2017-04-24] MEDS: OMEPRAZOLE 20 MG CAPSULE PO SCH (09:15)
[2017-04-24] MEDS: TAMSULOSIN 0.4 MG CAPSULE PO SCH (09:27)
--- NOTE | 2017-04-24 12:00 | Extended Care Facility Orders ---
Admission Orders Allergies/Adverse Reactions: Allergies bacitracin [From Neosporin ([id number])] Allergy (Verified 04/15/17 13:55) clopidogrel [From Plavix] Allergy (Verified 04/15/17 13:55) neomycin [From Neosporin ([id number])] Allergy (Verified 04/15/17 13:55) polymyxin B [From Neosporin ([id number])] Allergy (Verified 04/15/17 13:55) lorazepam [From Ativan] Adverse Reaction (Verified 04/15/17 12:53) Admitting Diagnosis: Major neurocognitive disorder & behavioral disturb Admitting Physician: Zaira Ball MD Attending Physician: Zaira Ball MD Anticiapted Length of Stay: greater than 30 days Rehab Potential: fair Rehab Prognosis: fair Diet: 04/15/17 Lunch Regular Diet [DIET] Diet Modifications: May have flu vaccine: Yes Evaluations/Treatment: Psychiatric, as needed Assisted Certification: I certify that SNF services are required to be given on an Inpatient basis because of the patients need for [facility] care on a continuing basis for the condition(s) for which he/she received inpatient hospital services prior to his/her transfer to the SNF. SNF inpatient care is necessary for the following reasons Indication for Assisted: Not Applicable - Additional Information In Event of Arrest: Do Not Start CPR Resident is Aware of Diagnosis: No (due to dementia) Referrals: Veronica Schafer MD [Family Provider] - (Dr. Frank Schafer on 05/07/2017 at 1:30 pm for Hosp. follow-up. . [facility] [address] [place] [id number] PCP will continue to manage patients Mental Health needs. )
--- NOTE | 2017-04-24 15:14 | Neuropsychiatric Disch Summary ---
Discharge Information Date of admission: 04/15/17 11:21 Anticipated date of discharge: 04/24/17 Attending Physician: Zaira Ball MD Primary care physician: Veronica Schafer MD Consults: 04/15/17 15:49 Case Management Consult [CONS] Routine Reason For Exam: Optimization of medical comorbidities Physician Consult [CONS] Routine Consulting Provider: Andrews Gold Reason For Exam: Optimization of medical comorbidities Ordering Provider has Notified Radio Sportscaster: No Comment: Nursing - please notify - Discharge Diagnosis (1) Major neurocognitive disorder Status: Acute (2) CAD (coronary artery disease) Status: Acute (3) Hypertension Status: Acute (4) Atrial fibrillation Status: Acute (5) CHF (congestive heart failure) Status: Acute (6) History of CVA (cerebrovascular accident) Status: Acute (7) Type 2 diabetes mellitus Status: Acute (8) BPH (benign prostatic hyperplasia) Status: Acute (9) Parkinson disease Status: Acute (10) Hypercholesteremia Status: Acute (11) Osteoarthritis Status: Acute - Laboratory Labs: 04/16/17 13:33 04/16/17 13:33 Date of Admission: 04/15/17 11:21 Chief complaint: AVH, Agitation History of Present Illness: Patient is as 86-year-old male who was admitted to [facility] on 04/15/17 from [facility] in [place], [place], as staff there reported agitation/aggression and VH. Per hospitalist: "He was previously in [facility] for 7 days, originally admitted (and ruled out) for chest pain, but had increased confusion, agitation and aggressive behaviors.He has had problems with restlessness and combativeness in the day and the night. He was changed from Seroquel to Risperdal during his stay. He is currently on Depakote 250 mg twice a day. While hospitalized, he had an episode of hypotension and decreased responsiveness, but this was corrected with IV fluids. He had a Sams placed as he had not voided for greater than 12 hours. He does have a history of urinary retention. He is on Flomax. Patient has had a markedly cognitive and behavioral decline in 6 months or so. Had a recent fall and did have a negative CT of his head during hospitalization in [place]." On interview, patient is pleasantly confused. He is more focused on eating and he mumbles to the extent that his answers are quite difficult for me to understand. He does start talking about a soldier coming by last night, which is completely unrelated to my interview question. Hospital Course This is a general summary of the patient's hospital course. For more details refer to the complete medical record. 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 Acute versus chronic) 04/15/17-Hospitalist consult Agree with admission to [facility] for further evaluation and treatment by psychiatry and to provide a safe environment Patient does have diabetes, but has opted against tight control of blood sugars. Patient is not on any diabetic medications. Will not require Accu- Cheks during his stay less needed. As he is not eating well he may have a normal diet. Will leave Hep-Lock and Sams in place for now if patient is not bothered by them. Follow I&O's. Check daily weights. Care to return to Dr. Schafer upon dismissal Hospitalist team will continue to manage patient medically throughout his stay. Thank you for the consult. 04/16/17 Psych: Continued home medications to observe behavior/response. 04/17/17 Psych: Decreased Sinemet to BID at 0800, 1400 in the event that it could be causing/contributing to VH. Monitor behavior/response in the evening. Additionally held lovastatin due to patient's age, severity of his dementia and in the event that it could be interfering with his sleep. 04/18/17 17:37 Pt is doing a little better. Continue current care 04/19/17 11:19 Pt is doing well. Continue current care 04/20/17 Suppository given this am for constipation Sams was inserted on admission for urinary retention. Start bladder retraining , in hopes of DC Sams in the next couple of days. Accuchecks range from 137-220s, most are under 180. PO intake is variable. 04/20/17 Psych: Will move HS Risperdal dose to 1600 to try to minimize sundowning. Monitor mood, behavior, response to treatment. 04/21/17 Psych: Patient improving but still has anxiety/agitation, restlessness with repetitive questioning earlier in evenings. Will change timing of Risperdal to 1800 and monitor response. 04/22/17 Psych: Continue current care - SW to discuss discharge planning with facility. 04/24/17 Psych: Continue current care - will work towards finalizing discharge arrangements (back to LTC facility). Discharge Plan - Med Rec/Dispo Referrals/Follow Up: Veronica Schafer MD [Family Provider] - (Dr. Frank Schafer on 05/07/2017 at 1:30 pm for Hosp. follow-up. . [facility] [address] [place] [address] PCP will continue to manage patients Mental Health needs. ) [facility] Instructions: Dementia ([facility]) Additional Instructions: Discharge Diagnosis: Major neurocognitive disorder, vascular, moderate to severe , with behavioral disturbance Reasons for Admission: Physical aggression, hitting staff, and confusion. IN CASE OF PSYCHIATRIC EMERGENCY, CONTACT [facility] STAFF AT [phone] ( available 24 hrs daily). Prescriptions: New Carbidopa/Levodopa 25/100 MG [Sinemet] 1 tab PO 0630,17 tab RisperiDONE [RisperDAL] 1 mg PO 16 tab Continue Lovastatin [Mevacor] 20 mg PO HS Tamsulosin [Flomax] 0.4 mg PO HS Ibuprofen 200 mg PO 0 Acetaminophen 325 - 650 mg PO Q4H PRN PRN Reason: Pain Aspirin 1 tab PO DAILY Lisinopril [Prinivil] 10 mg PO DAILY Sertraline HCl [Zoloft] 25 mg PO DAILY Divalproex [Depakote] 1 tab PO BID RisperiDONE [RisperDAL] 0.5 mg PO DAILY Omeprazole [Prilosec] 1 cap PO ACB Docusate Sodium [Colace] 1 cap PO DAILY Discontinued Carbidopa/Levodopa [Carbidopa-Levodopa 25-100 Tab] 1 tab PO TID RisperiDONE [RisperDAL] 1 mg PO HS - Disposition 04 To [facility] Home/Facility
== END 2017-04-24 14:46 | DRG 884 ==
LOC: GEN 11:21
PROVIDERS: ADMIT Psychiatry & Neurology Psychiatry; ATTEND Psychiatry & Neurology Psychiatry